=== PATIENT | female | born 1975 | race Caucasian/White ===

== ENCOUNTER 2019-05-14 09:03 | Outpatient (CLI) | payer MEDICARE, MEDICAID, SELFPAY ==
--- NOTE | 2019-05-14 09:08 | MM_ITS ---
WS: [id number] BILATERAL DIGITAL SCREENING MAMMOGRAPHY WITH CAD CLINICAL INFORMATION: SCREENING HISTORY: Screening mammogram. No current complaints. COMPARISON: April 25, 2018 TECHNIQUE: Bilateral CC and MLO views. FINDINGS: Scattered fibroglandular densities bilaterally. A few tiny stable punctate calcifications. No suspici ous focal mass, asymmetry, calcifications, or architectural distortion. No evidence of malignancy. MM/[place] [id number] IMPRESSION: BI-RADS: 2-Benign FOLLOW UP: 1 Year Follow-up Recommend return to annual screening mammography.
== END 2019-05-14 09:04 | disposition home or self-care (01) ==
LOC: RADSHAW 09:03
PROVIDERS: Family Provider Family Medicine; PCP Family Medicine; Visit Provider Family Medicine
DX: Z12.31 Encounter for screening mammogram for malignant neoplasm of breast (principal)
CPT/HCPCS: 77067

== ENCOUNTER 2020-06-20 07:52 | Outpatient (CLI) | payer MEDICARE, MEDICAID, SELFPAY ==
--- NOTE | 2020-06-20 07:59 | MM_ITS ---
WS: [id number] Exam: [place] [id number] Date/Time of Exam: 06/20/2020 7:59 AM Reason For Exam: SCREENING VIEWS: MLO and CC views both breasts. Comparison made with prior exam of 04/24/2017, 04/25/2018, and 05/14/2019.. Findings: There was no sign of mass, architectural distortion or suspicious calcification in either breast. Fa tty MM/[place] [id number] Impression: BI-RADS: 2-Benign FOLLOW-UP: 1 Year Follow-up This mammogram was also analyzed by the Computer Aided Detection System R2 Imag e Plate Setter.
== END 2020-06-20 07:53 | disposition home or self-care (01) ==
LOC: RADSHAW 07:56
PROVIDERS: Family Provider Family Medicine; PCP Family Medicine; Visit Provider Family Medicine
DX: Z12.31 Encounter for screening mammogram for malignant neoplasm of breast (principal)
CPT/HCPCS: 77067

== ENCOUNTER → 2021-08-09 08:26 | Outpatient (BNVA) | payer MEDICARE, MEDICAID, SELFPAY | PROVIDERS: Family Provider Family Medicine; PCP Family Medicine; Visit Provider Thoracic Surgery (Cardiothoracic Vascular Surgery) | DX: I96 Gangrene, not elsewhere classified (principal); L97.822 Non-pressure chronic ulcer of other part of left lower leg with fat layer exposed; L03.116 Cellulitis of left lower limb | CPT/HCPCS: 11042; 97597; 99203; 99213 ==

== ENCOUNTER 2021-08-16 10:28 | Outpatient (CLI) | payer MEDICARE, MEDICAID, SELFPAY | END 2021-08-16 10:29 | disposition home or self-care (01) | LOC: RAD 08-17 10:30 | PROVIDERS: Family Provider Family Medicine; PCP Family Medicine; Visit Provider Family Medicine | DX: I96 Gangrene, not elsewhere classified (principal); L97.822 Non-pressure chronic ulcer of other part of left lower leg with fat layer exposed; L03.90 Cellulitis, unspecified | CPT/HCPCS: 11042; 97597 ==

== ENCOUNTER → 2021-08-21 09:14 | Outpatient (BNVA) | payer MEDICARE, MEDICAID, SELFPAY | PROVIDERS: Family Provider Family Medicine; PCP Family Medicine; Visit Provider Thoracic Surgery (Cardiothoracic Vascular Surgery) | DX: I96 Gangrene, not elsewhere classified (principal); L97.822 Non-pressure chronic ulcer of other part of left lower leg with fat layer exposed | CPT/HCPCS: 11042; 97597 ==

== ENCOUNTER 2021-08-24 07:30 | Outpatient (CLI) | payer MEDICARE, MEDICAID, SELFPAY ==
--- NOTE | 2021-08-24 07:45 | USCV_ITS ---
Chuyita Kilpatrick Age: 46 Gender: F : 1975 Exam Date: 08/24/2021 07:52 Ordering Phys: Alex Rubalcava MD (Andy) ([email or web address]) Technologist: [place] [facility] [place]: lt leg pain and swelling PROCEDURES: Venous duplex imaging was performed in only the left lower extremity. The following venous structures were evaluated: common femoral vein, profunda vein, proximal portion of the greater saphenous vein, superficial femoral vein, and the popliteal vein. In addition, the posterior tibial and peroneal trunk were evaluated. FINDINGS: Normal 2-D Doppler and augmentation and compressibility throughout the lower extremity venous structures. Additional imaging through the proximal calf veins also reveals no thrombus. Limited evaluation of the greater saphenous vein is patent with no thrombus. CONCLUSIONS No DVT left lower extremity. Dr. Oksana Bryson DO (Electronically Signed) Final Date: 24 Aug 2021 09:11 S
== END 2021-08-24 07:31 | disposition home or self-care (01) ==
PROVIDERS: PCP Family Medicine; Visit Provider Thoracic Surgery (Cardiothoracic Vascular Surgery)
DX: M79.605 Pain in left leg (principal); L97.922 Non-pressure chronic ulcer of unspecified part of left lower leg with fat layer exposed
CPT/HCPCS: 93971

== ENCOUNTER → 2021-08-29 14:46 | Outpatient (BNVA) | payer MEDICARE, MEDICAID, SELFPAY | PROVIDERS: PCP Family Medicine; Visit Provider Nurse Practitioner Family | DX: I96 Gangrene, not elsewhere classified (principal); L97.822 Non-pressure chronic ulcer of other part of left lower leg with fat layer exposed | CPT/HCPCS: 11042 ==

== ENCOUNTER → 2021-09-04 09:15 | Outpatient (BNVA) | payer MEDICARE, MEDICAID, SELFPAY | PROVIDERS: PCP Family Medicine; Visit Provider Thoracic Surgery (Cardiothoracic Vascular Surgery) | DX: L97.822 Non-pressure chronic ulcer of other part of left lower leg with fat layer exposed (principal); I96 Gangrene, not elsewhere classified | CPT/HCPCS: 11042; 97597 ==

== ENCOUNTER → 2021-09-11 08:47 | Outpatient (BNVA) | payer MEDICARE, MEDICAID, SELFPAY | PROVIDERS: PCP Family Medicine; Visit Provider Thoracic Surgery (Cardiothoracic Vascular Surgery) | DX: I96 Gangrene, not elsewhere classified (principal); L97.822 Non-pressure chronic ulcer of other part of left lower leg with fat layer exposed | CPT/HCPCS: 11042; 97597; A6212 ==

== ENCOUNTER → 2021-09-18 08:59 | Outpatient (BNVA) | payer MEDICARE, MEDICAID, SELFPAY | PROVIDERS: PCP Family Medicine; Visit Provider Nurse Practitioner Family | DX: I96 Gangrene, not elsewhere classified (principal); L97.822 Non-pressure chronic ulcer of other part of left lower leg with fat layer exposed; L03.116 Cellulitis of left lower limb | CPT/HCPCS: 11042; 87070; 87077; 87176; 87186; 87205 ==

== ENCOUNTER 2021-09-22 08:18 | Outpatient (CLI) | payer MEDICARE, MEDICAID, SELFPAY ==
--- NOTE | 2021-09-22 08:26 | MM_ITS ---
WS: [id number] VIEWS: MLO and CC views both breasts. 3D digital tomosynthesis is also included in this exam. Comparison made with prior exam of 04/24/2017, 04/25/2018, 05/14/2019, 06/20/2020.. Findings: There was no sign of mass, architectural distortion or suspicious calcification in either breast. Fa tty MM/[place] [id number] Impression: BI-RADS: 2-Benign FOLLOW-UP: 1 Year Follow-up This mammogram was also analyzed by the Computer Aided Detection System R2 Imag e Flame Annealing Machine Setter.
== END 2021-09-22 08:19 | disposition home or self-care (01) ==
LOC: RAD 08:19
PROVIDERS: PCP Family Medicine; Visit Provider Family Medicine
DX: Z12.31 Encounter for screening mammogram for malignant neoplasm of breast (principal)
CPT/HCPCS: 77063; 77067

== ENCOUNTER → 2021-09-25 09:28 | Outpatient (BNVA) | payer MEDICARE, MEDICAID, SELFPAY | PROVIDERS: PCP Family Medicine; Visit Provider Thoracic Surgery (Cardiothoracic Vascular Surgery) | DX: I96 Gangrene, not elsewhere classified (principal); L97.822 Non-pressure chronic ulcer of other part of left lower leg with fat layer exposed | CPT/HCPCS: 11042; 29581; 97597; A6252 ==

== ENCOUNTER → 2021-09-28 08:03 | Outpatient (BNVA) | payer MEDICARE, MEDICAID, SELFPAY | PROVIDERS: PCP Family Medicine; Visit Provider Thoracic Surgery (Cardiothoracic Vascular Surgery) | DX: L98.8 Other specified disorders of the skin and subcutaneous tissue (principal); L97.822 Non-pressure chronic ulcer of other part of left lower leg with fat layer exposed | CPT/HCPCS: 29581 ==

== ENCOUNTER → 2021-10-04 08:17 | Outpatient (BNVA) | payer MEDICARE, MEDICAID, SELFPAY | PROVIDERS: PCP Family Medicine; Visit Provider Thoracic Surgery (Cardiothoracic Vascular Surgery) | DX: I96 Gangrene, not elsewhere classified (principal); L97.822 Non-pressure chronic ulcer of other part of left lower leg with fat layer exposed; L03.116 Cellulitis of left lower limb | CPT/HCPCS: 11042; 97597 ==

== ENCOUNTER → 2021-10-09 11:13 | Outpatient (BNVA) | payer MEDICARE, MEDICAID, SELFPAY | PROVIDERS: PCP Family Medicine; Visit Provider Thoracic Surgery (Cardiothoracic Vascular Surgery) | DX: I96 Gangrene, not elsewhere classified (principal); L97.822 Non-pressure chronic ulcer of other part of left lower leg with fat layer exposed; L03.116 Cellulitis of left lower limb | CPT/HCPCS: 11042; 97597; A6252 ==

== ENCOUNTER → 2021-10-16 10:22 | Outpatient (BNVA) | payer MEDICARE, MEDICAID, SELFPAY | PROVIDERS: PCP Family Medicine; Visit Provider Thoracic Surgery (Cardiothoracic Vascular Surgery) | DX: I96 Gangrene, not elsewhere classified (principal); L97.822 Non-pressure chronic ulcer of other part of left lower leg with fat layer exposed; L03.116 Cellulitis of left lower limb | CPT/HCPCS: 11042 ==

== ENCOUNTER → 2021-10-23 13:29 | Outpatient (BNVA) | payer MEDICARE, MEDICAID, SELFPAY | PROVIDERS: PCP Family Medicine; Visit Provider Thoracic Surgery (Cardiothoracic Vascular Surgery) | DX: I96 Gangrene, not elsewhere classified (principal); L97.822 Non-pressure chronic ulcer of other part of left lower leg with fat layer exposed | CPT/HCPCS: 11042; A6251 ==

== ENCOUNTER → 2021-10-30 10:40 | Outpatient (BNVA) | payer MEDICARE, MEDICAID, SELFPAY | PROVIDERS: PCP Family Medicine; Visit Provider Nurse Practitioner Family | DX: I96 Gangrene, not elsewhere classified (principal); L97.822 Non-pressure chronic ulcer of other part of left lower leg with fat layer exposed | CPT/HCPCS: 11042; A6021 ==

== ENCOUNTER → 2021-11-06 10:41 | Outpatient (BNVA) | payer MEDICARE, MEDICAID, SELFPAY | PROVIDERS: PCP Family Medicine; Visit Provider Thoracic Surgery (Cardiothoracic Vascular Surgery) | DX: I96 Gangrene, not elsewhere classified (principal); L97.822 Non-pressure chronic ulcer of other part of left lower leg with fat layer exposed | CPT/HCPCS: 11042; 97597; A6021; A6252 ==

== ENCOUNTER → 2021-11-13 10:14 | Outpatient (BNVA) | payer MEDICARE, MEDICAID, SELFPAY | PROVIDERS: PCP Family Medicine; Visit Provider Thoracic Surgery (Cardiothoracic Vascular Surgery) | DX: I96 Gangrene, not elsewhere classified (principal); L97.822 Non-pressure chronic ulcer of other part of left lower leg with fat layer exposed | CPT/HCPCS: 11042; A6251 ==

== ENCOUNTER → 2021-11-20 09:46 | Outpatient (BNVA) | payer MEDICARE, MEDICAID, SELFPAY | PROVIDERS: PCP Family Medicine; Visit Provider Thoracic Surgery (Cardiothoracic Vascular Surgery) | DX: I96 Gangrene, not elsewhere classified (principal); L97.822 Non-pressure chronic ulcer of other part of left lower leg with fat layer exposed | CPT/HCPCS: 97597; A6021 ==

== ENCOUNTER → 2021-11-27 10:13 | Outpatient (BNVA) | payer MEDICARE, MEDICAID, SELFPAY | PROVIDERS: PCP Family Medicine; Visit Provider Thoracic Surgery (Cardiothoracic Vascular Surgery) | DX: I96 Gangrene, not elsewhere classified (principal); L97.822 Non-pressure chronic ulcer of other part of left lower leg with fat layer exposed; L03.116 Cellulitis of left lower limb | CPT/HCPCS: 11042; 97597; A6021 ==

== ENCOUNTER → 2021-12-01 09:27 | Outpatient (BNVA) | payer MEDICARE, MEDICAID, SELFPAY | PROVIDERS: PCP Family Medicine; Visit Provider Surgery | DX: L98.8 Other specified disorders of the skin and subcutaneous tissue (principal); L97.822 Non-pressure chronic ulcer of other part of left lower leg with fat layer exposed | CPT/HCPCS: 29581; A6021 ==

== ENCOUNTER → 2021-12-06 09:25 | Outpatient (BNVA) | payer MEDICARE, MEDICAID, SELFPAY | PROVIDERS: PCP Family Medicine; Visit Provider Thoracic Surgery (Cardiothoracic Vascular Surgery) | DX: L03.90 Cellulitis, unspecified (principal); L97.822 Non-pressure chronic ulcer of other part of left lower leg with fat layer exposed; I96 Gangrene, not elsewhere classified | CPT/HCPCS: 15271; 97597; A6206; A6251; Q4205 ==

== ENCOUNTER → 2021-12-11 08:40 | Outpatient (BNVA) | payer MEDICARE, MEDICAID, SELFPAY | PROVIDERS: PCP Family Medicine; Visit Provider Nurse Practitioner Family | DX: I96 Gangrene, not elsewhere classified (principal); L03.116 Cellulitis of left lower limb; L97.822 Non-pressure chronic ulcer of other part of left lower leg with fat layer exposed | CPT/HCPCS: 11042; 15271; A6206; A6251; Q4205 ==

== ENCOUNTER → 2021-12-18 08:42 | Outpatient (BNVA) | payer MEDICARE, MEDICAID, SELFPAY | PROVIDERS: PCP Family Medicine; Visit Provider Thoracic Surgery (Cardiothoracic Vascular Surgery) | DX: I96 Gangrene, not elsewhere classified (principal); L97.822 Non-pressure chronic ulcer of other part of left lower leg with fat layer exposed | CPT/HCPCS: 15271; 97597; A6207; A6252; Q4205 ==

== ENCOUNTER → 2021-12-25 09:01 | Outpatient (BNVA) | payer MEDICARE, MEDICAID, SELFPAY | PROVIDERS: PCP Family Medicine; Visit Provider Thoracic Surgery (Cardiothoracic Vascular Surgery) | DX: I96 Gangrene, not elsewhere classified (principal); L97.822 Non-pressure chronic ulcer of other part of left lower leg with fat layer exposed | CPT/HCPCS: 11042 ==

== ENCOUNTER → 2022-01-01 09:03 | Outpatient (BNVA) | payer MEDICARE, MEDICAID, SELFPAY | PROVIDERS: PCP Family Medicine; Visit Provider Thoracic Surgery (Cardiothoracic Vascular Surgery) | DX: I96 Gangrene, not elsewhere classified (principal); L97.822 Non-pressure chronic ulcer of other part of left lower leg with fat layer exposed; L03.116 Cellulitis of left lower limb | CPT/HCPCS: 97597; A6252 ==

== ENCOUNTER → 2022-01-08 09:24 | Outpatient (BNVA) | payer MEDICARE, MEDICAID, SELFPAY | PROVIDERS: PCP Family Medicine; Visit Provider Thoracic Surgery (Cardiothoracic Vascular Surgery) | DX: I96 Gangrene, not elsewhere classified (principal); L97.822 Non-pressure chronic ulcer of other part of left lower leg with fat layer exposed; L03.116 Cellulitis of left lower limb | CPT/HCPCS: 97597; A6252 ==

== ENCOUNTER → 2022-01-15 09:30 | Outpatient (BNVA) | payer MEDICARE, MEDICAID, SELFPAY | PROVIDERS: PCP Family Medicine; Visit Provider Nurse Practitioner Family | DX: I96 Gangrene, not elsewhere classified (principal); L97.822 Non-pressure chronic ulcer of other part of left lower leg with fat layer exposed; L03.116 Cellulitis of left lower limb | CPT/HCPCS: 11042; A6252 ==

== ENCOUNTER → 2022-01-22 10:13 | Outpatient (BNVA) | payer MEDICARE, MEDICAID, SELFPAY | PROVIDERS: PCP Family Medicine; Visit Provider Thoracic Surgery (Cardiothoracic Vascular Surgery) | DX: I96 Gangrene, not elsewhere classified (principal); L97.822 Non-pressure chronic ulcer of other part of left lower leg with fat layer exposed; L03.116 Cellulitis of left lower limb | CPT/HCPCS: 97597 ==

== ENCOUNTER → 2022-01-29 09:39 | Outpatient (BNVA) | payer MEDICARE, MEDICAID, SELFPAY | PROVIDERS: PCP Family Medicine; Visit Provider Thoracic Surgery (Cardiothoracic Vascular Surgery) | DX: I96 Gangrene, not elsewhere classified (principal); L03.116 Cellulitis of left lower limb; L97.822 Non-pressure chronic ulcer of other part of left lower leg with fat layer exposed | CPT/HCPCS: 11042; A6021 ==

== ENCOUNTER → 2022-02-05 09:58 | Outpatient (BNVA) | payer MEDICARE, MEDICAID, SELFPAY | PROVIDERS: PCP Family Medicine; Visit Provider Thoracic Surgery (Cardiothoracic Vascular Surgery) | DX: I96 Gangrene, not elsewhere classified (principal); L03.116 Cellulitis of left lower limb; L97.822 Non-pressure chronic ulcer of other part of left lower leg with fat layer exposed | CPT/HCPCS: 97597; A6021 ==

== ENCOUNTER → 2022-02-12 10:14 | Outpatient (BNVA) | payer MEDICARE, MEDICAID, SELFPAY | PROVIDERS: PCP Family Medicine; Visit Provider Thoracic Surgery (Cardiothoracic Vascular Surgery) | DX: I96 Gangrene, not elsewhere classified (principal); L97.822 Non-pressure chronic ulcer of other part of left lower leg with fat layer exposed; L03.116 Cellulitis of left lower limb | CPT/HCPCS: 97597 ==

== ENCOUNTER → 2022-02-19 10:28 | Outpatient (BNVA) | payer MEDICARE, MEDICAID, SELFPAY | PROVIDERS: PCP Family Medicine; Visit Provider Nurse Practitioner Family | DX: I96 Gangrene, not elsewhere classified (principal); L03.116 Cellulitis of left lower limb; L97.822 Non-pressure chronic ulcer of other part of left lower leg with fat layer exposed | CPT/HCPCS: 11042 ==

== ENCOUNTER → 2022-02-26 10:49 | Outpatient (BNVA) | payer MEDICARE, MEDICAID, SELFPAY | PROVIDERS: PCP Family Medicine; Visit Provider Nurse Practitioner Family | DX: I96 Gangrene, not elsewhere classified (principal); L97.822 Non-pressure chronic ulcer of other part of left lower leg with fat layer exposed; L03.116 Cellulitis of left lower limb | CPT/HCPCS: 11042; A6212 ==

== ENCOUNTER → 2022-03-07 09:01 | Outpatient (BNVA) | payer MEDICARE, MEDICAID, SELFPAY | PROVIDERS: PCP Family Medicine; Visit Provider Thoracic Surgery (Cardiothoracic Vascular Surgery) | DX: I96 Gangrene, not elsewhere classified (principal); L97.822 Non-pressure chronic ulcer of other part of left lower leg with fat layer exposed; L03.116 Cellulitis of left lower limb | CPT/HCPCS: 11042; 97597; A6021; A6212 ==

== ENCOUNTER → 2022-03-12 14:47 | Outpatient (BNVA) | payer MEDICARE, MEDICAID, SELFPAY | PROVIDERS: PCP Family Medicine; Visit Provider Nurse Practitioner Family | DX: I96 Gangrene, not elsewhere classified (principal); L97.822 Non-pressure chronic ulcer of other part of left lower leg with fat layer exposed; L03.116 Cellulitis of left lower limb | CPT/HCPCS: 11042 ==

== ENCOUNTER → 2022-03-19 09:59 | Outpatient (BNVA) | payer MEDICARE, MEDICAID, SELFPAY | PROVIDERS: PCP Family Medicine; Visit Provider Thoracic Surgery (Cardiothoracic Vascular Surgery) | DX: L97.922 Non-pressure chronic ulcer of unspecified part of left lower leg with fat layer exposed (principal); L03.116 Cellulitis of left lower limb | CPT/HCPCS: 11042; A6212 ×2 ==

== ENCOUNTER → 2022-03-27 09:18 | Outpatient (BNVA) | payer MEDICARE, MEDICAID, SELFPAY | PROVIDERS: PCP Family Medicine; Visit Provider Thoracic Surgery (Cardiothoracic Vascular Surgery) | DX: I96 Gangrene, not elsewhere classified (principal); L97.822 Non-pressure chronic ulcer of other part of left lower leg with fat layer exposed; L03.116 Cellulitis of left lower limb | CPT/HCPCS: 11042 ==

== ENCOUNTER → 2022-04-03 10:10 | Outpatient (BNVA) | payer MEDICARE, MEDICAID, SELFPAY | PROVIDERS: PCP Family Medicine; Visit Provider Thoracic Surgery (Cardiothoracic Vascular Surgery) | DX: I96 Gangrene, not elsewhere classified (principal); L97.822 Non-pressure chronic ulcer of other part of left lower leg with fat layer exposed; L03.116 Cellulitis of left lower limb | CPT/HCPCS: 11042 ==

== ENCOUNTER → 2022-04-09 10:17 | Outpatient (BNVA) | payer MEDICARE, MEDICAID, SELFPAY | PROVIDERS: PCP Family Medicine; Visit Provider Thoracic Surgery (Cardiothoracic Vascular Surgery) | DX: I96 Gangrene, not elsewhere classified (principal); L97.822 Non-pressure chronic ulcer of other part of left lower leg with fat layer exposed; L03.116 Cellulitis of left lower limb | CPT/HCPCS: 11042; A6212 ==

== ENCOUNTER → 2022-04-16 10:51 | Outpatient (BNVA) | payer MEDICARE, MEDICAID, SELFPAY | PROVIDERS: PCP Family Medicine; Visit Provider Thoracic Surgery (Cardiothoracic Vascular Surgery) | DX: I96 Gangrene, not elsewhere classified (principal); L97.822 Non-pressure chronic ulcer of other part of left lower leg with fat layer exposed; L03.116 Cellulitis of left lower limb | CPT/HCPCS: 11042; A6021 ==

== ENCOUNTER → 2022-04-23 12:02 | Outpatient (BNVA) | payer MEDICARE, MEDICAID, SELFPAY | PROVIDERS: PCP Family Medicine; Visit Provider Thoracic Surgery (Cardiothoracic Vascular Surgery) | DX: L03.116 Cellulitis of left lower limb (principal); L97.822 Non-pressure chronic ulcer of other part of left lower leg with fat layer exposed | CPT/HCPCS: 11042; A6021; A6212 ==

== ENCOUNTER → 2022-05-07 09:30 | Outpatient (BNVA) | payer MEDICARE, MEDICAID, SELFPAY | PROVIDERS: PCP Family Medicine; Visit Provider Thoracic Surgery (Cardiothoracic Vascular Surgery) | DX: I96 Gangrene, not elsewhere classified (principal); L97.822 Non-pressure chronic ulcer of other part of left lower leg with fat layer exposed; L03.116 Cellulitis of left lower limb | CPT/HCPCS: 97597; A6021; A6212 ==

== ENCOUNTER → 2022-05-14 09:13 | Outpatient (BNVA) | payer MEDICARE, MEDICAID, SELFPAY | PROVIDERS: PCP Family Medicine; Visit Provider Thoracic Surgery (Cardiothoracic Vascular Surgery) | DX: I96 Gangrene, not elsewhere classified (principal); L97.822 Non-pressure chronic ulcer of other part of left lower leg with fat layer exposed; L03.115 Cellulitis of right lower limb; Z09 Encounter for follow-up examination after completed treatment for conditions other than malignant neoplasm | CPT/HCPCS: 97597; A6021 ==

== ENCOUNTER → 2022-05-21 09:40 | Outpatient (BNVA) | payer MEDICARE, MEDICAID, SELFPAY | PROVIDERS: PCP Family Medicine; Visit Provider Thoracic Surgery (Cardiothoracic Vascular Surgery) | DX: I96 Gangrene, not elsewhere classified (principal); L03.116 Cellulitis of left lower limb; L97.822 Non-pressure chronic ulcer of other part of left lower leg with fat layer exposed | CPT/HCPCS: 97597; A6021; A6212 ==

== ENCOUNTER → 2022-05-28 09:05 | Outpatient (BNVA) | payer MEDICARE, MEDICAID, SELFPAY | PROVIDERS: PCP Family Medicine; Visit Provider Thoracic Surgery (Cardiothoracic Vascular Surgery) | DX: I96 Gangrene, not elsewhere classified (principal); L97.822 Non-pressure chronic ulcer of other part of left lower leg with fat layer exposed; L03.116 Cellulitis of left lower limb | CPT/HCPCS: 97597; A6021; A6212 ==

== ENCOUNTER → 2022-06-04 09:39 | Outpatient (BNVA) | payer MEDICARE, MEDICAID, SELFPAY | PROVIDERS: PCP Family Medicine; Visit Provider Thoracic Surgery (Cardiothoracic Vascular Surgery) | DX: I96 Gangrene, not elsewhere classified (principal); L97.822 Non-pressure chronic ulcer of other part of left lower leg with fat layer exposed; L03.115 Cellulitis of right lower limb | CPT/HCPCS: 99212; A6021; A6212 ==

== ENCOUNTER → 2022-06-11 08:55 | Outpatient (BNVA) | payer MEDICARE, MEDICAID, SELFPAY | PROVIDERS: PCP Family Medicine; Visit Provider Nurse Practitioner Family | DX: I96 Gangrene, not elsewhere classified (principal); L97.822 Non-pressure chronic ulcer of other part of left lower leg with fat layer exposed; Z09 Encounter for follow-up examination after completed treatment for conditions other than malignant neoplasm | CPT/HCPCS: 97597; A6021; A6212 ==

== ENCOUNTER → 2022-06-18 09:11 | Outpatient (BNVA) | payer MEDICARE, MEDICAID, SELFPAY | PROVIDERS: PCP Family Medicine; Visit Provider Nurse Practitioner Family | DX: I96 Gangrene, not elsewhere classified (principal); L97.822 Non-pressure chronic ulcer of other part of left lower leg with fat layer exposed; L03.116 Cellulitis of left lower limb | CPT/HCPCS: 97597; A6021; A6212 ==

== ENCOUNTER 2022-06-28 13:21 | Outpatient (CLI) | payer MEDICARE, MEDICAID, SELFPAY ==
--- NOTE | 2022-06-28 13:30 | USCV_ITS ---
Chuyita Kilpatrick Age: 47 Gender: F : 1975 Exam Date: 06/28/2022 15:02 Ordering Phys: Zena Lee NP Technologist: [place] [facility] [place]: [place] leg pain and edema PROCEDURES: Comparison:. 08/25/19 Venous duplex imaging was performed in only the left lower extremity. The following venous structures were evaluated: common femoral vein, profunda vein, proximal portion of the greater saphenous vein, superficial femoral vein, and the popliteal vein. In addition, the posterior tibial and peroneal trunk were evaluated. FINDINGS: Normal 2-D Doppler and augmentation and compressibility throughout the lower extremity venous structures. Additional imaging through the proximal calf veins also reveals no thrombus. Limited evaluation of the greater saphenous vein is patent with no thrombus. CONCLUSIONS No DVT left lower extremity. Dr. Oksana Bryson DO (Electronically Signed) Final Date: 28 June 2022 16:20 S
== END 2022-06-28 13:22 | disposition home or self-care (01) ==
PROVIDERS: PCP Family Medicine; Visit Provider Nurse Practitioner Family
DX: I96 Gangrene, not elsewhere classified (principal); L97.822 Non-pressure chronic ulcer of other part of left lower leg with fat layer exposed; L03.116 Cellulitis of left lower limb; M79.605 Pain in left leg; R60.0 Localized edema
CPT/HCPCS: 93971; 97597; A6212; A6251; A6252

== ENCOUNTER → 2022-07-05 08:44 | Outpatient (BNVA) | payer MEDICARE, MEDICAID, SELFPAY | PROVIDERS: PCP Family Medicine; Visit Provider Nurse Practitioner Family | DX: I96 Gangrene, not elsewhere classified (principal); L97.822 Non-pressure chronic ulcer of other part of left lower leg with fat layer exposed; L03.115 Cellulitis of right lower limb | CPT/HCPCS: 97597; A6212 ==

== ENCOUNTER → 2022-07-12 08:43 | Outpatient (BNVA) | payer MEDICARE, MEDICAID, SELFPAY | PROVIDERS: PCP Family Medicine; Visit Provider Nurse Practitioner Family | DX: I96 Gangrene, not elsewhere classified (principal); L97.822 Non-pressure chronic ulcer of other part of left lower leg with fat layer exposed; L03.116 Cellulitis of left lower limb | CPT/HCPCS: 97597 ==

== ENCOUNTER → 2022-07-19 08:43 | Outpatient (BNVA) | payer MEDICARE, MEDICAID, SELFPAY | PROVIDERS: PCP Family Medicine; Visit Provider Nurse Practitioner Family | DX: I96 Gangrene, not elsewhere classified (principal); L97.822 Non-pressure chronic ulcer of other part of left lower leg with fat layer exposed; L03.116 Cellulitis of left lower limb | CPT/HCPCS: 97597 ==

== ENCOUNTER → 2022-07-26 08:41 | Outpatient (BNVA) | payer MEDICARE, MEDICAID, SELFPAY | PROVIDERS: PCP Family Medicine; Visit Provider Nurse Practitioner Family | DX: I96 Gangrene, not elsewhere classified (principal); I87.2 Venous insufficiency (chronic) (peripheral); L97.822 Non-pressure chronic ulcer of other part of left lower leg with fat layer exposed | CPT/HCPCS: 97597 ==

== ENCOUNTER → 2022-08-02 08:45 | Outpatient (BNVA) | payer MEDICARE, MEDICAID, SELFPAY | PROVIDERS: PCP Family Medicine; Visit Provider Nurse Practitioner Family | DX: I96 Gangrene, not elsewhere classified (principal); L97.822 Non-pressure chronic ulcer of other part of left lower leg with fat layer exposed | CPT/HCPCS: 97597 ==

== ENCOUNTER → 2022-08-09 08:55 | Outpatient (BNVA) | payer MEDICARE, MEDICAID, SELFPAY | PROVIDERS: PCP Family Medicine; Visit Provider Nurse Practitioner Family | DX: I96 Gangrene, not elsewhere classified (principal); L97.821 Non-pressure chronic ulcer of other part of left lower leg limited to breakdown of skin | CPT/HCPCS: 97597 ==

== ENCOUNTER → 2022-08-16 09:03 | Outpatient (BNVA) | payer MEDICARE, MEDICAID, SELFPAY | PROVIDERS: PCP Family Medicine; Visit Provider Nurse Practitioner Family | DX: I96 Gangrene, not elsewhere classified (principal); L97.822 Non-pressure chronic ulcer of other part of left lower leg with fat layer exposed | CPT/HCPCS: 97597; 97598 ==

== ENCOUNTER 2022-08-21 16:34 | Outpatient (CLI) | payer MEDICARE, MEDICAID, SELFPAY ==
--- NOTE | 2022-08-21 16:30 | USR_ITS ---
PROCEDURE INFORMATION: Exam: US Duplex Left Lower Extremity Veins, Limited Exam date and time: 08/21/2022 4:50 PM Age: 47 years old Clinical indication: Other: Non healing ulcers lateral leg; Additional info: M79.89 - other specified soft tissue disorders TECHNIQUE: Imaging protocol: Real-time duplex ultrasound of the left extremity with 2-D cedeno scale, color Doppler flow and spectral waveform analysis including responses to compression and other maneuvers (when performed) with image documentation. Limited exam focused on the left lower extremity veins. COMPARISON: No relevant prior studies available. FINDINGS: Left deep veins: Unremarkable. The common femoral, femoral, proximal profunda femoral and popliteal veins are patent without thrombus. Normal Doppler waveforms. Normal compressibility and/or augmentation response. Left superficial veins: Unremarkable. Saphenofemoral junction is patent without thrombus. Soft tissues: Unremarkable. US/CV venous duplex [facility] [id number] IMPRESSION: No evidence of deep vein thrombosis.
[2022-08-21 17:24] LABS: Basophils # 0.1 10^3/uL (0.0-0.1); Basophils % 0.3 %; Eosinophils % 0.2 %; Hematocrit 42.6 % (37.0-47.0); Hemoglobin 13.7 g/dL (11.5-15.3); Lymphocytes # 1.6 10^3/uL (0.8-4.8); Lymphocytes % 8.8 %; Mean Corpuscular HGB Conc 32.2 g/dL (30.0-36.0); Mean Corpuscular Hemoglobin 29.9 pg (28.0-34.0); Mean Platelet Volume 9.3 fL (7.4-10.4); Monocytes # 0.4 10^3/uL (0.2-0.9); Monocytes % 2.1 %; Neutrophils # 16.25 10^3/uL (1.8-7.7); Neutrophils % 87.7 %; Nucleated Red Blood Cells % 0 %; Platelet Count 289 10^3/cmm (130-400); Red Blood Count 4.58 10^6/uL (4.1-5.3); Red Cell Distribution Width 13.4 % (12.1-15.1); White Blood Count 18.5 10^3/uL (4.0-10.0)
[2022-08-21 17:47] LABS: Alanine Aminotransferase 17 U/L (0-33); Albumin Level 3.7 g/dL (3.5-5.2); Alkaline Phosphatase 89 U/L (35-105); Anion Gap 17.4 (5-19); Aspartate Amino Transferase 16 U/L (0-32); Blood Urea Nitrogen 13 mg/dL (6-20); Calcium 9.5 mg/dL (8.5-10.5); Carbon Dioxide 24 mmol/L (22-29); Chloride 101 mmol/L (98-107); Globulin 3.6 g/dL (1.3-4.6); Glomerular Filtration Rate 108.1 mL/min (90-130); Glucose 114 mg/dL (65-115); Osmolality Calculated 289 mOsm/kg (285-295); Potassium 3.4 mmol/L (3.5-5.1); Sodium 139 mmol/L (136-145); Total Bilirubin 0.2 mg/dL (0.15-1.2); Total Protein 7.3 g/dL (6.6-8.7)
== END 2022-08-21 16:35 | disposition home or self-care (01) ==
PROVIDERS: PCP Family Medicine; Visit Provider Nurse Practitioner Family
DX: L03.116 Cellulitis of left lower limb (principal); M79.89 Other specified soft tissue disorders; S81.802A Unspecified open wound, left lower leg, initial encounter; X58.XXXA Exposure to other specified factors, initial encounter
CPT/HCPCS: 36415; 80053; 85025; 93971; 97597; 97598

== ENCOUNTER 2022-08-21 18:21 | Inpatient (IN) | payer MEDICARE, MEDICAID, SELFPAY ==
[2022-08-21 18:32] VITALS: BP 138/75; PULSE 102; RESP 18; TEMP 36.7; O2SAT 98; BMI 44.1
--- NOTE | 2022-08-21 18:56 | W.ED.RECABL ---
HPI - Recheck/Abnormal Lab/Rx General: Chief Complaint: Recheck/Abnormal Lab/Rx Stated Complaint: abnormal labs Time Seen by Provider: 08/21/22 18:48 History of Present Illness: Patient sent over here by wound care for cellulitis and elevated white count. 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 Patient sees wound care for her multiple wounds from picking on her left lower extremity. Wound care noted her white count to be 18.5 earlier today and her erythema of her left lower extremity extended well up into her mid thigh from her ankle region. MD complaint: wound re-check, abnormal lab and needs IV antibiotics Review of Systems General: Reports: 10 or more systems reviewed and unremarkable except in HPI and below PFSH ED PFSH: Surgical History No history of previous surgery Family History Mother Hypertension Grandmother Clotting disorder paternal Denies family history of Colon cancer Ovarian cancer Diabetes Heart disease Hyperlipidemia Breast cancer Anesthesia complication Bleeding disorder Uterine cancer Thyroid condition Stroke Social History Smoking and tobacco status: never smoked Alcohol intake: never Substance/Drug Use: never Physical Exam Const: COMMON NORMALS: no acute distress, average body habitus, healthy appearing, alert and well nourished HENMT: COMMON NORMALS: normocephalic, atraumatic, hearing grossly normal bilaterally, external ears normal, Normal external nose present and moist oral mucous membranes HEAD & SCALP: normocephalic and atraumatic NOSE: Normal external nose present EXTERNAL EAR: Yes external ears normal Neck/C-Spine: COMMON NORMALS: full ROM, no lymphadenopathy, supple, no meningeal signs, no JVD and Thyroid normal THYROID: Thyroid normal Lymph: LYMPHATIC: no lymphadenopathy noted Chest: COMMONS NORMALS: normal inspection of the chest and normal palpation of entire chest wall Resp: COMMON NORMALS: normal respiratory effort, No retractions, No use of accessory muscles and clear to auscultation bilaterally AUSCULTATION: clear to auscultation bilaterally Cardio: COMMON NORMALS: no JVD, regular rate, regular rhythm, S1 normal heart sound present and S2 normal heart sound present RATE: regular rate RHYTHM: regular rhythm HEART SOUNDS: S1 normal heart sound present and S2 normal heart sound present GI: COMMON NORMALS: Normal to inspection, nondistended, normoactive bowel sounds present, Soft to palpation, non-tender, No hepatosplenomegaly present and no masses PALPATION: Yes Soft to palpation and Yes No hepatosplenomegaly present Extremity: NARRATIVE EXTREMITY EXAM: Left lower extremity bandages in place of the distal lower leg. There is erythema and warmth all the way up at least to mid thigh consistent with cellulitis Neuro: SENSORIUM/ORIENTATION: Yes alert MENINGEAL SIGNS: Yes no meningeal signs Course Vital Signs: Vital signs: Vital Signs Temperature 98.1 F 08/21/22 18:32 Pulse Rate 110 H 08/21/22 19:36 Respiratory Rate 16 08/21/22 19:36 Blood Pressure 126/101 08/21/22 19:36 Pulse Oximetry 96 08/21/22 19:36 Oxygen Delivery Me thod Room Air 08/21/22 18:32 MDM - Recheck/Abnormal Lab/Rx Medical Decision Making Patient was sent over by wound care for elevated white blood cell count and cellulitis. Patient is mentally challenged and a payment manager. Labs were reobtained which showed a white count of 20.1. Patient was given Levaquin 750 mg IV. This was discussed with her mother that she should be placed inpatient on IV antibiotics until improvement of her cellulitis and white blood cell count. Mother and her agreed. Dr. Thompson was consulted who agreed for inpatient admission with IV antibiotics. Medical Records I reviewed the patient's medical records. Lab Data I reviewed the patient's lab results. 08/21/22 19:10 08/21/22 19:10 Laboratory Results WBC 20.1 10^3/uL (4.0-10.0) H 08/21/22 19:10 RBC 4.59 10^6/uL (4.1-5.3) 08/21/22 19:10 Hgb 13.4 g/dL (11.5-15.3) 08/21/22 19:10 Hct 41.7 % (37.0-47.0) 08/21/22 19:10 MCV 90.8 fl (81-99) 08/21/22 19:10 MCH 29.2 pg (28.0-34.0) 08/21/22 19:10 MCHC 32.1 g/dL (30.0-36.0) 08/21/22 19:10 RDW 13.2 % (12.1-15.1) 08/21/22 19:10 Plt Count 322 10^3/cmm (130-400) 08/21/22 19:10 MPV 9.4 fL (7.4-10.4) 08/21/22 19:10 Neut % (Auto) 89.2 % 08/21/22 19:10 Lymph % (Auto) 7.5 % 08/21/22 19:10 Cabell % (Auto) 2.3 % 08/21/22 19:10 Eos % (Auto) 0.1 % 08/21/22 19:10 Baso % (Auto) 0.2 % 08/21/22 19:10 Neut # (Auto) 17.89 10^3/uL (1.8-7.7) H 08/21/22 19:10 Lymph # (Auto) 1.5 10^3/uL (0.8-4.8) 08/21/22 19:10 Cabell # (Auto) 0.5 10^3/uL (0.2-0.9) 08/21/22 19:10 Eos # (Auto) 0.0 10^3/uL (0.0-0.8) 08/21/22 19:10 Baso # (Auto) 0.0 10^3/uL (0.0-0.1) 08/21/22 19:10 Nucleated RBC % (auto) 0 % 08/21/22 19:10 Nucleated RBCs # 0.0 /100WBC 08/21/22 19:10 Sodium 137 mmol/L (136-145) 08/21/22 19:10 Potassium 3.5 mmol/L (3.5-5.1) 08/21/22 19:10 Chloride 98 mmol/L (98-107) 08/21/22 19:10 Carbon Dioxide 25 mmol/L (22-29) 08/21/22 19:10 Anion Gap 17.5 (5-19) 08/21/22 19:10 BUN 14 mg/dL (6-20) 08/21/22 19:10 Creatinine 0.9 mg/dL (0.5-0.9) 08/21/22 19:10 GFR Calculation 67.7 mL/min (90-130) L 08/21/22 19:10 Glucose 120 mg/dL (65-115) H 08/21/22 19:10 Calculated Osmolality 286 mOsm/kg (285-295) 08/21/22 19:10 Calcium 9.5 mg/dL (8.5-10.5) 08/21/22 19:10 Total Bilirubin 0.3 mg/dL (0.15-1.2) 08/21/22 19:10 AST 15 U/L (0-32) 08/21/22 19:10 ALT 16 U/L (0-33) 08/21/22 19:10 Alkaline Phosphatase 85 U/L (35-105) 08/21/22 19:10 Total Protein 7.2 g/dL (6.6-8.7) 08/21/22 19:10 Albumin 3.6 g/dL (3.5-5.2) 08/21/22 19:10 Globulin 3.6 g/dL (1.3-4.6) 08/21/22 19:10 Discharge Plan Discharge Patient Disposition: Admitted As Inpatient Clinical Impression: Cellulitis, Leukocytosis Condition: Stable Prescriptions: No Action montelukast [Singulair] 10 mg tablet 10 mg PO DAILY ibuprofen 800 mg tablet 800 mg PO TID PRN fluticasone propion-salmeterol [Advair Diskus] 250-50 mcg/dose blister with device 1 inh inhalation BID albuterol sulfate [Ventolin HFA] 90 mcg/actuation HFA aerosol inhaler 2 puff inhalation Q6H PRN desogestrel-ethinyl estradiol [Isibloom] 0.15-0.03 mg tablet 1 tab PO DAILY lorazepam 0.5 mg tablet 0.5 mg PO TID PRN oxybutynin chloride 5 mg tablet 5 mg PO TID hydrochlorothiazide 25 mg tablet 25 mg PO DAILY furosemide [Lasix] 40 mg tablet 40 mg PO DAILY potassium chloride 20 mEq tablet extended release 20 meq PO DAILY vitamin A and D Cream 1 applic topical DAILY Qty: 1 0RF Rx Instructions: Apply to the to the irritated skin around the wound daily. clindamycin HCl 300 mg capsule 300 mg PO TID Qty: 21 0RF triamcinolone acetonide 0.1 % cream 1 applic topical DAILY Qty: 454 2RF nystatin 100,000 unit/gram cream 1 applic topical DAILY Qty: 30 2RF Referrals: Shwetha Thomas MD [Primary Care Provider] - Coding Level of Care Code ED Centrifugal Screen Tender for Dileepg Luis
[2022-08-21] MEDS: levofloxacin-dextrose 5 % 750 MG/150 ML PREMIX 100 MG IV (19:11)
[2022-08-21 19:21] LABS: Basophils % 0.2 %; Eosinophils % 0.1 %; Hematocrit 41.7 % (37.0-47.0); Hemoglobin 13.4 g/dL (11.5-15.3); Lymphocytes # 1.5 10^3/uL (0.8-4.8); Lymphocytes % 7.5 %; Mean Corpuscular HGB Conc 32.1 g/dL (30.0-36.0); Mean Corpuscular Hemoglobin 29.2 pg (28.0-34.0); Mean Corpuscular Volume 90.8 fl (81-99); Mean Platelet Volume 9.4 fL (7.4-10.4); Monocytes # 0.5 10^3/uL (0.2-0.9); Monocytes % 2.3 %; Neutrophils # 17.89 10^3/uL (1.8-7.7); Neutrophils % 89.2 %; Nucleated Red Blood Cells % 0 %; Platelet Count 322 10^3/cmm (130-400); Red Blood Count 4.59 10^6/uL (4.1-5.3); Red Cell Distribution Width 13.2 % (12.1-15.1); White Blood Count 20.1 10^3/uL (4.0-10.0)
[2022-08-21 19:36] VITALS: BP 126/101; PULSE 110; RESP 16; O2SAT 96
[2022-08-21 19:37] LABS: Alanine Aminotransferase 16 U/L (0-33); Albumin Level 3.6 g/dL (3.5-5.2); Alkaline Phosphatase 85 U/L (35-105); Anion Gap 17.5 (5-19); Aspartate Amino Transferase 15 U/L (0-32); Blood Urea Nitrogen 14 mg/dL (6-20); Calcium 9.5 mg/dL (8.5-10.5); Carbon Dioxide 25 mmol/L (22-29); Chloride 98 mmol/L (98-107); Globulin 3.6 g/dL (1.3-4.6); Glomerular Filtration Rate 67.7 mL/min (90-130); Glucose 120 mg/dL (65-115); Osmolality Calculated 286 mOsm/kg (285-295); Potassium 3.5 mmol/L (3.5-5.1); Sodium 137 mmol/L (136-145); Total Bilirubin 0.3 mg/dL (0.15-1.2); Total Protein 7.2 g/dL (6.6-8.7)
--- NOTE | 2022-08-21 21:00 | PM.HP ---
Providers/Chief Complaint Admitting Physician: Therese Thompson MD Primary Care Provider: Shwetha Thomas MD Chief Complaint: abnormal labs History of Present Illness Chuyita Kilpatrick is a 47 year old female with PMH of asthma, LLE wound that she has been following up with wound care for presented to the hospital today after being sent from wound care clinic for cellulitis. She states she has a habit of picking on her skin and has been picking at her wound lately. Patient has extensive erythema and swelling all the way upto left side with 3 open wounds approx 1 cm diameter each by left lateral leg area. She also reports a subjective fever but has not checked it with a thermometer. She lives at assisted living facility. Denies n/v/d/abd pain/constipation/breathing issues, chest pain, sob or any other symptoms at this time. States she would like us to contact her aunt Marina for any updates. She is unable to confirm her medications at this time. Is in pain and requesting for pain medicine. Allergic to penicillin. Was given levaquin in ER. Medications/Allergies Home Medications Medication Instructions Recorded Confirmed Last Taken Type albuterol sulfate 90 mcg/actuation 2 puff inhalation Q6H PRN 08/05/20 09/06/21 Unknown History aerosol inhaler (Ventolin HFA) desogestrel 0.15 mg-ethinyl 1 tab PO DAILY 08/05/20 09/06/21 Unknown History estradiol 0.03 mg tablet (Isibloom) fluticasone 250 mcg-salmeterol 50 1 inh inhalation BID 08/05/20 09/06/21 Unknown History mcg/dose blistr powdr for inhalation (Advair Diskus) ibuprofen 800 mg tablet 800 mg PO TID PRN 08/05/20 09/06/21 Unknown History lorazepam 0.5 mg tablet 0.5 mg PO TID PRN 08/05/20 09/06/21 Unknown History montelukast 10 mg tablet 10 mg PO DAILY 08/05/20 09/06/21 Unknown History (Singulair) oxybutynin chloride 5 mg tablet 5 mg PO TID 08/05/20 09/06/21 Unknown History furosemide 40 mg tablet (Lasix) 40 mg PO DAILY 09/06/21 09/06/21 Unknown History hydrochlorothiazide 25 mg tablet 25 mg PO DAILY 09/06/21 09/06/21 Unknown History potassium chloride 20 mEq 20 meq PO DAILY 09/06/21 09/06/21 Unknown History tablet,extended release nystatin 100,000 unit/gram topical 1 applic topical DAILY fungal 02/21/22 Unknown Rx cream infection #30 grams triamcinolone acetonide 0.1 % 1 applic topical DAILY fungal 02/21/22 Unknown Rx topical cream infection #454 grams vitamin A and D 1 applic topical DAILY skin 07/19/22 07/19/22 Unknown Rx irritation #1 applic clindamycin HCl 300 mg capsule 300 mg PO TID #21 caps 08/21/22 08/21/22 Unknown Rx Allergies Allergy/AdvReac Type Severity Reaction Status Date / Time amoxicillin [From Augmentin] Allergy ALGY-Rash Verified 08/21/22 18:32 clavulanic acid Allergy ALGY-Rash Verified 08/21/22 18:32 [From Augmentin] PFSH Acute PFSH: Surgical History No history of previous surgery Family History Mother Hypertension Grandmother Clotting disorder paternal Denies family history of Colon cancer Ovarian cancer Diabetes Heart disease Hyperlipidemia Breast cancer Anesthesia complication Bleeding disorder Uterine cancer Thyroid condition Stroke Social History Smoking and tobacco status: never smoked Alcohol intake: never Substance/Drug Use: never Vitals/I&O/Wt Last Vital Signs Temp 98.1 F 08/21/22 18:32 Pulse 110 H 08/21/22 19:36 Resp 16 08/21/22 19:36 BP 126/101 08/21/22 19:36 Pulse Ox 96 08/21/22 19:36 O2 Del Method Room Air 08/21/22 18:32 08/21/22 08/21/22 08/21/22 06:59 14:59 22:59 Intake Total 150 / 150 Balance 150 / 150 Weight last 48 hrs Weight 102.512 kg Physical Exam Narrative: Young female laying in bed appearing comfortable, states she is in pain and would like pain medicine lungs clear to auscultation b/l, no wheezes or ronchi heart: normal s1, s2, no gross murmers abd soft non tender Extremities: right LE unremarkable. Left LE larger than right, extensive erythema extending upto thigh, marked with skin pen, 3 open wounds noted 1 cm diameter approx by left LE. Unable to check for depth at this time. Data 08/21/22 19:10 08/21/22 19:10 A&P Assessment and plan (1) Cellulitis: Qualifiers: Laterality: left Site of cellulitis: extremity Site of cellulitis of extremity: lower extremity Qualified Code(s): L03.116 - Cellulitis of left lower limb (2) Leukocytosis: Qualifiers: Leukocytosis type: unspecified Qualified Code(s): D72.829 - Elevated white blood cell count, unspecified Plan #LLE Cellutlis with open wounds #Asthma #Possible HF? Patient seems to be on diuretics but med list is unconfirmed, no echo on file - Check CRP, ESR, Lactic acid - NS 1L to be ordered - Place on NS 125 cc/hr - Start vanc and aztreonam - CT leg with contrast to rule out underlying abscess. Consider surgery consult if warranted after results - Duoneb q6H PRN however I don't believe she will need it as asthma is well controlled - Med rec need to be completed. Confirm meds with pharmacy - Please update Aunt Ms. Gray in AM by primary team - Check blood cultures - Repeat lactic acid with reflex - Morphine 1 mg q4h PRN for pain - Order wound care Full Code DVT PPX: heparin subc BID Attestations Medical Necessity Statement*: > 2 midnight stay for management of cellulitis Coding Level of Care Code G0425 (30 min) TH Encounter Time (min): 45 Patient seen via Telehealth in the acute care setting (hospital or ED location) by agreement and consent of patient or patient automotive leasing sales representative. Telehealth technology used during the visit includes video and audio. This patient encounter is appropriate and reasonable under the circumstances given the patient?s particular presentation at this time. The patient has been advised of the potential risks and limitations of this mode of treatment (including but not limited to the absence of in-person examination at this time) and has agreed to be treated by an off-site physician for this visit. If deemed clinically necessary from this telehealth visit, or if condition or consent for telehealth visit changes, an in-person visit will be arranged. For this encounter, total time for the origination of telehealth care on this date is as shown. Diagnoses Cellulitis L03.116 Laterality: left Site of cellulitis: extremity Site of cellulitis of extremity: lower extremity Leukocytosis D72.829 Leukocytosis type: unspecified
[2022-08-21 21:02] VITALS: BP 126/101; PULSE 110; RESP 16; TEMP 36.7; O2SAT 96
[2022-08-21 21:03] VITALS: BP 145/92; PULSE 143; RESP 20; TEMP 36.8; O2SAT 91
--- NOTE | 2022-08-21 21:08 | CTR_ITS ---
PROCEDURE INFORMATION: Exam: CT Left Lower Extremity With Contrast Exam date and time: 08/21/2022 10:59 PM Age: 47 years old Clinical indication: Pain; Ankle and hip and knee and lower leg; Ankle and knee and lower leg and thigh; Patient HX: PT has what appears to be cellulitis encompassing near entirety of left lower extremity. Wbc of 20k. Crp of 318.0; Additional info: Rule out abscess, deep infection, include thigh area ankle TECHNIQUE: Imaging protocol: CT of the left lower extremity with intravenous contrast was performed. Radiation optimization: All CT scans at this facility use at least one of these dose optimization techniques: automated exposure control; mA and/or kV adjustment per patient size (includes targeted exams where dose is matched to clinical indication); or iterative reconstruction. Contrast material: OMNI 350; Contrast volume: 100 ml; Contrast route: INTRAVENOUS (IV); REPORTING DATA: Count of CT and Cardiac NM exams in prior 12 months: This patient has received 0 known CTs and 0 known cardiac nuclear medicine studies in the 12 months prior to the current study. COMPARISON: US CV venous duplex [facility] [id number] 08/21/2022 4:50 PM RADIATION DOSE METRICS: Total DLP (mGy-cm): 1619.62 FINDINGS: Bones/joints: No obvious soft tissue ulceration, soft tissue emphysema, osteomyelitis or abscess. Soft tissues: Soft tissue swelling involving the entire leg with [id number] distally and minimal proximally most consistent with cellulitis. Vasculature: One or more calcified pelvic phleboliths. CT/CT lower leg LT w con [id number] IMPRESSION: 1. Soft tissue swelling involving the entire leg with [id number] distally and minimal proximally most consistent with cellulitis. 2. No obvious soft tissue ulceration, soft tissue emphysema, osteomyelitis or abscess.
[2022-08-21] MEDS: sodium chloride 0.9% 1,000 ML 125 ML IV (21:41)
[2022-08-21] MEDS: aztreonam 1,000 MG in sodium chloride 0.9% (plus) 50 ML 100 MG IV (21:42)
[2022-08-21] MEDS: heparin 5,000 unit/mL INJ 1 mL 5000 UNIT SUBCUT (21:42)
[2022-08-21 22:01] LABS: Erythrocyte Sedimentation Rate 43 mm/hr (0-15)
[2022-08-21 22:12] LABS: Lactic Sepsis W/Reflex 2.5 mmol/L (0.5-2.2)
[2022-08-21 22:21] LABS: Thyroid Stimulating Hormone 3.38 uIU/mL (0.27-4.20)
[2022-08-21 22:22] LABS: Procalcitonin 0.56 ng/mL (0-0.5)
[2022-08-21] MEDS: vancomycin 1,000 MG in sodium chloride 0.9% 250 ML 250 MG IV (22:23)
--- NOTE | 2022-08-21 23:07 | XRR_ITS ---
PROCEDURE INFORMATION: Exam: XR Chest Exam date and time: 08/21/2022 10:20 PM Age: 47 years old Clinical indication: Other: Baseline TECHNIQUE: Imaging protocol: Radiologic exam of the chest. Views: 1 view. COMPARISON: CR XR chest 1V [id number] 06/18/2017 7:07 PM FINDINGS: Lungs: Unremarkable. No consolidation. Pleural spaces: Unremarkable. No pleural effusion. No pneumothorax. Heart/Mediastinum: Unremarkable. No cardiomegaly. Bones/joints: Moderate thoracic spondylosis. Other findings: Possible morbid obesity. XR/XR chest 1V portable [id number] IMPRESSION: No acute findings.
[2022-08-21] MEDS: sodium chloride 0.9% 1,000 ML 999 ML IV (23:16)
[2022-08-21] MEDS: acetaminophen 325 mg Tablet 650 MG PO (23:16)
[2022-08-21 23:41] LABS: Reflex Lactate Order REFLEX LACTIC ORDERD
[2022-08-21] MEDS: clindamycin 300 MG/50 ML PREMIX 100 MG IV (23:56)
[2022-08-22] VITALS (11 sets, daily range): BP systolic 106–150; BP diastolic 69–95; PULSE 92–120; RESP 16–30; TEMP 36.3–38.6; O2SAT 90–99
[2022-08-22 01:40] LABS: Basophils # 0.1 10^3/uL (0.0-0.1); Basophils % 0.3 %; Hemoglobin 11.9 g/dL (11.5-15.3); Lymphocytes # 1.2 10^3/uL (0.8-4.8); Mean Corpuscular HGB Conc 33.1 g/dL (30.0-36.0); Mean Corpuscular Hemoglobin 30.1 pg (28.0-34.0); Mean Corpuscular Volume 91.1 fl (81-99); Mean Platelet Volume 9.7 fL (7.4-10.4); Monocytes # 0.3 10^3/uL (0.2-0.9); Neutrophils # 15.22 10^3/uL (1.8-7.7); Neutrophils % 89.9 %; Nucleated Red Blood Cells % 0 %; Platelet Count 262 10^3/cmm (130-400); Red Blood Count 3.95 10^6/uL (4.1-5.3); Red Cell Distribution Width 13.2 % (12.1-15.1); White Blood Count 16.9 10^3/uL (4.0-10.0)
[2022-08-22 02:07] LABS: Alanine Aminotransferase 13 U/L (0-33); Alkaline Phosphatase 77 U/L (35-105); Anion Gap 12.9 (5-19); Aspartate Amino Transferase 14 U/L (0-32); Blood Urea Nitrogen 12 mg/dL (6-20); Calcium 8.7 mg/dL (8.5-10.5); Carbon Dioxide 21 mmol/L (22-29); Chloride 102 mmol/L (98-107); Creatinine Clr Calc Pharmacy 109.4368; Globulin 3.1 g/dL (1.3-4.6); Glomerular Filtration Rate 90.5 mL/min (90-130); Glucose 127 mg/dL (65-115); Magnesium 1.5 mg/dL (1.7-2.3); Osmolality Calculated 277 mOsm/kg (285-295); Sodium 133 mmol/L (136-145); Total Bilirubin 0.3 mg/dL (0.15-1.2); Total Protein 6.1 g/dL (6.6-8.7)
[2022-08-22 02:11] LABS: Lactic Acid level (Lactate) 1.3 mmol/L (0.5-2.2)
[2022-08-22 02:15] LABS: Potassium 2.9 mmol/L (3.5-5.1)
[2022-08-22] MEDS: sodium chloride 0.9% 1,000 ML 125 ML IV (02:18)
[2022-08-22] MEDS: potassium chloride ER 20 mEq Tablet 40 MEQ PO (03:28)
--- NOTE | 2022-08-22 07:52 | PC.PHAR ---
Addendum entered by Justyna Tuttle 08/22/22 08:42: clindamycin 300mg tid not on mar from [facility] on 08/22/22-rx written and filled 08/21/22 Original Note: pt is from [facility]-lesa pat from [facility] will fax over mar and tar
[2022-08-22] MEDS: clindamycin 300 MG/50 ML PREMIX 100 MG IV ×3 (08:30→23:05)
[2022-08-22] MEDS: aztreonam 1,000 MG in sodium chloride 0.9% (plus) 50 ML 100 MG IV ×2 (08:32→22:23)
[2022-08-22] MEDS: heparin 5,000 unit/mL INJ 1 mL 5000 UNIT SUBCUT ×2 (08:40→22:23)
[2022-08-22] MEDS: montelukast sodium 10 mg Tablet PO (08:40)
[2022-08-22] MEDS: sodium chloride 0.9% 1,000 ML 999 ML IV (10:31)
--- NOTE | 2022-08-22 10:40 | PM.PN ---
Subjective Subjective: Sepsis criteria met with fever tachycardia tachypnea leukocytosis lactic acid Judicious use of fluid for septic bolus because she has congestive heart failure and clinically is volume overloaded I will only give her 1 more liter as she had received 1 L overnight Lactic acid improved this morning Cultures have been taken Hypokalemia and hypomagnesemia repleted Family at the bedside Vitals/I&O/Wt Last Vital Signs Temp 99.3 F 08/22/22 08:00 Pulse 103 H 08/22/22 08:00 Resp 24 H 08/22/22 08:00 BP 126/94 08/22/22 08:00 Pulse Ox 90 08/22/22 08:00 O2 Del Method Room Air 08/22/22 08:00 08/21/22 08/22/22 08/22/22 22:59 06:59 14:59 Intake Total 150 / 150 577.083 / 663.390 9252 / 2622 Output Total 0 / 0 Balance 150 / 150 577.083 / 269.354 8194 / 2622 Weight last 48 hrs Weight 102.512 kg Physical Exam Narrative: Patient is very anxious Emotionally labile Currently on room air Clinical signs of fluid overload Left lower extremity cellulitis has been marked Low 70 edema 1+ Abdomen distended nontender Nonfocal neuro exam Currently doing well on room air No skin mottling Adequate urine output Good capillary refills Data 08/22/22 01:18 08/22/22 01:18 Micro: Microbiology 08/21/22 21:36 Blood Culture - Preliminary Blood SPECIMEN COLLECTED 08/21/22 21:36 Blood Culture - Preliminary Blood SPECIMEN COLLECTED A&P Assessment and plan (1) Cellulitis: Qualifiers: Laterality: left Site of cellulitis: extremity Site of cellulitis of extremity: lower extremity Qualified Code(s): L03.116 - Cellulitis of left lower limb (2) Sepsis: (3) Leukocytosis: Qualifiers: Leukocytosis type: unspecified Qualified Code(s): D72.829 - Elevated white blood cell count, unspecified (4) Hypokalemia: (5) Hypomagnesemia: Plan lChronic lower extremity wound Follows up at wound care clinic Active cellulitis without abscess Sepsis related to cellulitis Currently on broad-spectrum antibiotics with clindamycin Would limited fluid resuscitation because of active signs of volume overload Lactic acid improving Cultures taken Hemodynamically stable for now Currently on room air Full code Cardiac diet For anxiety continue Xanax for leg pain continue morphine along oxycodone Discontinue normal saline because of active signs of volume overload after her boluses DVT prophylaxis: With heparin Complex discharge, family is at the bedside She is from assisted living Attestations Medical Necessity Statement*: Continue medical management Diagnoses Cellulitis L03.116 Laterality: left Site of cellulitis: extremity Site of cellulitis of extremity: lower extremity Sepsis A41.9 Leukocytosis D72.829 Leukocytosis type: unspecified Hypokalemia E87.6 Hypomagnesemia E83.42
--- NOTE | 2022-08-22 10:40 | PC.CHAP ---
Pastoral Care Encounter/Spiritual Assessment Type of Contact [] Declined automotive dismantler visit [] Patient/Family/Request visit [] Outpatient visit [] Follow-up visit [] Physician referral [] Code/Alert [x] Routine visit [] Staff referral [] Actively dying [] Patient sleeping [x] Family support [] [] Out of room [] Palliative care [] [] Receiving care in room [] Pre-surgical visit [] Trauma [] Long length of stay [] ICU visit [] Other: Relational/Emotional Strength [] Patient feels connected with others/family/visitors/staff [] Distress [] Loneliness/isolation [] Abandonment Spirituality of Patient x] Person of Suzanne [] Attends Church of their Suzanne [x] Believes in Prayer [] Reads Bible or Hinduism materials [] There are Spiritual issues to be addressed Wire Strander Interventions [x] Prayer [x] Active listening [x] Non-anxious presence [] Spiritual/emotional support [] Crisis/trauma care [] Spiritual counseling [] Bereavement support [] Provided bereavement packet [] Provided Bible/devotional materials [] Provided toy/stuffed animal, coloring book to patient or family member [] Provided Communion [] Anointing/[place] [] Salvation [x] Completed spiritual assessment [] Other: Impact on Illness or Injury [] Angry [] Fearful [] Anxious [] Often cries [] Exhaustion [] Unable to work [] Unable to attend congregation [] Unable to walk/stand [] Unable to read [] Unable to drive [] Unable to eat/drink [] Unable to sleep [] Unable to be with family [] Patient intubated [] Other: Summary Time spent with patient 10 min
[2022-08-22] MEDS: potassium chloride premix 100 ML 25 MEQ IV ×2 (11:33→16:04)
[2022-08-22] MEDS: LORazepam 0.5 mg Tablet PO ×3 (12:04→22:29)
--- NOTE | 2022-08-22 12:11 | PC.NURSE ---
VS-clients respirations are elevated, report given to Eduardo. He is planning on giving anti-anxiety medications.
[2022-08-22] MEDS: morphine 4 mg/mL SDV 1 mL 2 MG IVP ×3 (12:27→23:30)
--- NOTE | 2022-08-22 15:15 | PC.NURSE ---
Single lumen PICC placed to right basilic vein without difficulty. Informed consent obtained from patient guardian over phone with two nurse verification. Pt has poor peripheral access and is receiving potassium and antibiotics. Mid-arm circumference measured 10 cm from right AC 41 cm. Trimmed cath length 43 cm with 1 cm external length noted. CXR confirms cath tip in SVC, in good position to use per radiologist. EBL <10 mL. Dressing due to be changed 08/23/22. Report given to bedside nurseEduardo.
--- NOTE | 2022-08-22 15:23 | XR_ITS ---
WS: [id number] Portable AP upright chest, 08/22/2022 Clinical Data: post picc Comparison: Portable chest, 08/21/2022 Findings: A right PICC line enters the right subclavian vein and then ends in the superior vena cava. No pneumothorax is seen. XR/XR chest 1V portable [id number] Impression: Satisfactory position of right PICC line.
[2022-08-22] MEDS: acetaminophen 325 mg Tablet 650 MG PO (16:12)
[2022-08-22] MEDS: vancomycin 1,000 MG in sodium chloride 0.9% 250 ML 250 MG IV (16:46)
[2022-08-22 20:31] LABS: Glucose Point of Care 180 mg/dL (70-110)
[2022-08-22] MEDS: oxybutynin 5 mg Tablet PO (22:23)
[2022-08-23] VITALS (9 sets, daily range): BP systolic 109–125; BP diastolic 83–89; PULSE 56–108; RESP 16–18; TEMP 36.4–37.6; O2SAT 95–100
[2022-08-23 03:53] LABS: Basophils % 0.2 %; Eosinophils % 0.1 %; Hematocrit 35.9 % (37.0-47.0); Hemoglobin 11.4 g/dL (11.5-15.3); Lymphocytes # 1.9 10^3/uL (0.8-4.8); Lymphocytes % 12.9 %; Mean Corpuscular HGB Conc 31.8 g/dL (30.0-36.0); Mean Corpuscular Hemoglobin 28.7 pg (28.0-34.0); Mean Corpuscular Volume 90.4 fl (81-99); Mean Platelet Volume 9.9 fL (7.4-10.4); Monocytes # 0.6 10^3/uL (0.2-0.9); Neutrophils # 12.19 10^3/uL (1.8-7.7); Neutrophils % 82.1 %; Nucleated Red Blood Cells % 0 %; Platelet Count 198 10^3/cmm (130-400); Red Blood Count 3.97 10^6/uL (4.1-5.3); Red Cell Distribution Width 13.2 % (12.1-15.1); White Blood Count 14.9 10^3/uL (4.0-10.0)
[2022-08-23 04:15] LABS: Blood Urea Nitrogen 9 mg/dL (6-20); Calcium 7.9 mg/dL (8.5-10.5); Carbon Dioxide 19 mmol/L (22-29); Chloride 101 mmol/L (98-107); Glomerular Filtration Rate 172.6 mL/min (90-130); Glucose 141 mg/dL (65-115); Osmolality Calculated 275 mOsm/kg (285-295); Sodium 132 mmol/L (136-145)
[2022-08-23 04:16] LABS: Anion Gap 15.7 (5-19); Potassium 3.7 mmol/L (3.5-5.1)
[2022-08-23] MEDS: potassium chloride ER 20 mEq Tablet PO (05:16)
[2022-08-23] MEDS: oxybutynin 5 mg Tablet PO ×2 (05:16→20:17)
[2022-08-23] MEDS: FUROsemide 40 mg Tablet PO (05:16)
[2022-08-23] MEDS: acetaminophen 325 mg Tablet 650 MG PO ×2 (05:17→20:17)
[2022-08-23] MEDS: heparin 5,000 unit/mL INJ 1 mL 5000 UNIT SUBCUT ×2 (08:36→20:23)
[2022-08-23] MEDS: montelukast sodium 10 mg Tablet PO (08:36)
[2022-08-23] MEDS: nystatin cream 30 gm 1 APPLIC TOPICAL (08:37)
[2022-08-23] MEDS: collagenase oint 30 gm 1 APPLIC TOPICAL (08:37)
[2022-08-23] MEDS: clindamycin 300 MG/50 ML PREMIX 100 MG IV ×2 (08:38→17:07)
[2022-08-23] MEDS: aztreonam 1,000 MG in sodium chloride 0.9% (plus) 50 ML 100 MG IV ×2 (08:51→20:39)
[2022-08-23 09:27] LABS: D Dimer 2.39 ug/mIFEU (0-0.59)
--- NOTE | 2022-08-23 09:29 | PC.PHAR ---
Dose changed due to improved renal function Scr from 0.9 5-23 to 0.4 5-25. Trough to be drawn before 3rd dose... 5-26 @0900 Patient: Floor: Age: 47 yo Serum creatinine: 0.6 mg/dL Height: 59.8 Inches Weight (kg): 102 IBW (kg): 45.35 Dosing wt(kg): 68.0 Estimated Creatinine clearance (ml/min): 84.8 CRCL method: Cockcroft and Gault using ibw(default). Drug selected: Vancomycin Loading dose (mg): Vd (liters): 47.6 (factor used: 0.7 L/kg) Bryant (hr-1): 0.075 Half life (hrs): 9.24 CLvanco=?? 3.570 L/hr Recommended dose: 1250 mg Interval: 12 hrs Infusion time (hrs): 1 Predicted peak (mcg/mL): 42.6 Predicted trough (mcg/mL): 18.67 Adjusted body weight was selected for vancomycin dosing. To switch back, select the total body weight option above. Recommendations: Give Vancomycin 1250 mg q 12 hrs with an expected Cpeak of 42.6 mcg/ml and an expected Ctrough of 18.67 mcg/ml AUC 0-24 /LYN Data: LYN 0.5 mcg/mL:?? AUC/LYN:? 1400.6 LYN 1.0 mcg/mL:?? AUC/LYN:? 700.3 --------- LYN 1.5 mcg/mL:?? AUC/LYN:? 466.9 LYN 2.0 mcg/mL:?? AUC/LYN:? 350.1 Renal dosing of other antibiotics (review renal dosing of other medications and list guidelines here): Thank you for the consult, will continue to follow. Signature:
--- NOTE | 2022-08-23 10:25 | PM.PN ---
Subjective Subjective: Fever 101 noted yesterday Leukocytosis trending down No overnight events Patient was concerned about blister formation on her left knee Cellulitis seems to be regressing from the markings Venous Doppler requested D-dimer 2.3 Cultures negative to date Previous wound culture positive for MRSA and Pseudomonas Vitals/I&O/Wt Last Vital Signs Temp 99.6 F 08/23/22 07:51 Pulse 99 08/23/22 08:03 Resp 16 08/23/22 08:03 BP 119/83 08/23/22 07:51 Pulse Ox 99 08/23/22 08:03 O2 Del Method Nasal Cannula 08/23/22 08:03 O2 Flow Rate 1 08/23/22 08:03 08/22/22 08/23/22 08/23/22 22:59 06:59 14:59 Intake Total 620 / 4482 100 / 4582 340 / 340 Balance 620 / 4482 100 / 4582 340 / 340 Weight last 48 hrs Weight 102.512 kg Physical Exam Narrative: Awake and alert Morbidly obese Signs of volume overload Left leg cellulitis seems to be progressing from the markings Blister formation around left knee No crepitation No signs of vascular compromise of toes Awake and alert GCS 15 Intellectually challenged Currently on room air Data 08/23/22 03:13 08/23/22 03:13 Micro: Microbiology 08/21/22 21:36 Blood Culture - Preliminary Blood NEGATIVE TO DATE 08/21/22 21:36 Blood Culture - Preliminary Blood NEGATIVE TO DATE A&P Assessment and plan (1) Hypomagnesemia: (2) Hypokalemia: (3) Cellulitis: Qualifiers: Laterality: left Site of cellulitis: extremity Site of cellulitis of extremity: lower extremity Qualified Code(s): L03.116 - Cellulitis of left lower limb (4) Sepsis: (5) Leukocytosis: Qualifiers: Leukocytosis type: unspecified Qualified Code(s): D72.829 - Elevated white blood cell count, unspecified (6) Acute exacerbation of CHF (congestive heart failure): Plan Sepsis related to cellulitis of left leg Cultures negative to date Leukocytosis lying down Febrile event noted yesterday Judicious fluids given because of her volume overload status Acute CHF exacerbation EF is unknown Volume overload: I will change her p.o. Lasix to Bumex 1 mg IV push, monitor electrolytes Check BNP Patient is currently on room air We will request echo to know her EF Left leg wound, Santyl dressing on daily basis Left knee blister: Monitor for now Intellectually challenged, family updated Cardiac diet Full code DVT prophylaxis heparin Right arm PICC line placed 08/22 because of poor IV access, cultures are negative to date I am hoping she will be able to go back to her [facility] on p.o. antibiotics over the weekend Attestations Medical Necessity Statement*: Continue medical management Diagnoses Hypomagnesemia E83.42 Hypokalemia E87.6 Cellulitis L03.116 Laterality: left Site of cellulitis: extremity Site of cellulitis of extremity: lower extremity Sepsis A41.9 Leukocytosis D72.829 Leukocytosis type: unspecified Acute exacerbation of CHF (congestive heart failure) I50.9
--- NOTE | 2022-08-23 10:29 | USCV_ITS ---
Chuyita Kilpatrick Age: 47 Gender: F : 1975 Exam Date: 08/23/2022 14:41 Ordering Phys: Matt Washington MD Technologist: Rafy Jang Exam Location: [facility] [place] Indication: pedal edema ?chf BP: 132 / 74 HR: 107 Rhythm: Sinus Technical Quality: Adequate MEASUREMENTS (Male / Female) Normal Values 2D ECHO LV Diastolic Diameter PLAX 2.8 cm 4.2 - 5.9 / 3.9 - 5.3 cm LV Systolic Diameter PLAX 1.8 cm IVS Diastolic Thickness 1.2 cm 0.6 - 1.0 / 0.6 - 0.9 cm IVS Systolic Thickness 1.3 cm LVPW Diastolic Thickness 1.2 cm 0.6 - 1.0 / 0.6 - 0.9 cm LVPW Systolic Thickness 1.3 cm LVOT Diameter 2.0 cm LV Ejection Fraction 2D Teich 67.3 % LV Ejection Fraction MOD 2C 53.0 % LV Ejection Fraction 2C AL 52.3 % LA Diameter 3.6 cm Aorta at Sinotubular Diameter 2.2 cm M-MODE Aortic Annulus Diameter 3.2 cm LA Ao Ratio MM 1.3 MV E Point Septal Separation 1.0 cm DOPPLER AV Peak Velocity 131.0 cm/s LVOT Peak Velocity 108.0 cm/s AV Area Cont Eq vti 2.9 cm squared AV Area Cont Eq pk 2.6 cm squared MV Area PHT 5.0 cm squared Mitral E to A Ratio 0.8 MV E' Velocity 68.0 cm/s Mitral E to LV E' Septal Ratio 8.8 TR Peak Velocity 132.7 cm/s TR Peak Gradient 7.0 mmHg TV Peak E Velocity 82.0 cm/s Right Atrial Pressure 3.0 mmHg Pulmonary Artery Systolic Pressu 10.0 mmHg RV Acceleration Time 0.1 s FINDINGS Left Ventricle Normal left ventricular size, systolic function and wall thickness, with no regional wall motion abnormalities. Left ventricular ejection fraction is estimated at 55 %. Normal diastolic function. Right Ventricle Normal right ventricular size and systolic function. Right Atrium Normal right atrial size. Left Atrium Normal left atrial size. Mitral Valve Structurally normal mitral valve. No mitral valve stenosis. Trace mitral valve regurgitation. Aortic Valve Aortic valve not well visualized. No aortic valve stenosis. Tricuspid Valve Structurally normal tricuspid valve. Trace tricuspid valve regurgitation. Pulmonic Valve Pulmonic valve not well visualized. Pericardium No pericardial effusion. Aorta Aorta not well visualized. IVC Inferior vena cava not visualized. CONCLUSIONS 1. Normal left ventricular size, systolic function and wall thickness, with no regional wall motion abnormalities. Left ventricular ejection fraction is estimated at 55 %. 2. No prior similar studies to compare. Jennyfer Dhillon MD (Electronically Signed) Final Date: 23 Aug 2022 21:39 S
[2022-08-23] MEDS: vancomycin 1,250 MG/250 ML PIGGYBACK 200 MG IV ×2 (10:52→22:17)
[2022-08-23] MEDS: bumetanide 0.25 mg/mL SDV 4 mL 1 MG IVP (12:08)
--- NOTE | 2022-08-23 13:00 | PC.NURSE ---
Sterile dressing change to right upper arm PICC complete. Old dressing with gauze removed. Small amount old bloody drainage noted. Site clear without redness, drainage, or bruising. Biopatch CHG disk applied and secured with Sorbaview transparent semipermeable membrane (TSM) dressing. Pt tolerated well.
[2022-08-23] MEDS: perflutren protein-a microsphr 0.22 mg/mL SDV 3 mL IV (15:01)
[2022-08-23] MEDS: morphine 4 mg/mL SDV 1 mL 2 MG IVP (16:00)
[2022-08-24] VITALS (10 sets, daily range): BP systolic 110–124; BP diastolic 73–81; PULSE 73–96; RESP 14–18; TEMP 36.7–37.1; O2SAT 94–98
[2022-08-24] MEDS: oxybutynin 5 mg Tablet PO ×2 (06:05→20:38)
[2022-08-24] MEDS: acetaminophen 325 mg Tablet 650 MG PO (06:06)
[2022-08-24] MEDS: potassium chloride ER 20 mEq Tablet PO (06:06)
[2022-08-24 07:21] LABS: Basophils % 0.2 %; Eosinophils # 0.2 10^3/uL (0.0-0.8); Eosinophils % 1.5 %; Hematocrit 34.6 % (37.0-47.0); Hemoglobin 11.1 g/dL (11.5-15.3); Lymphocytes % 15.8 %; Mean Corpuscular HGB Conc 32.1 g/dL (30.0-36.0); Mean Corpuscular Hemoglobin 28.8 pg (28.0-34.0); Mean Corpuscular Volume 89.9 fl (81-99); Mean Platelet Volume 9.3 fL (7.4-10.4); Monocytes # 0.9 10^3/uL (0.2-0.9); Monocytes % 6.9 %; Neutrophils # 9.64 10^3/uL (1.8-7.7); Neutrophils % 74.7 %; Nucleated Red Blood Cells % 0 %; Platelet Count 225 10^3/cmm (130-400); Red Blood Count 3.85 10^6/uL (4.1-5.3); White Blood Count 12.9 10^3/uL (4.0-10.0)
[2022-08-24 07:42] LABS: Anion Gap 13.3 (5-19); Blood Urea Nitrogen 9 mg/dL (6-20); Calcium 8.3 mg/dL (8.5-10.5); Carbon Dioxide 23 mmol/L (22-29); Chloride 103 mmol/L (98-107); Glomerular Filtration Rate 133.4 mL/min (90-130); Glucose 102 mg/dL (65-115); Osmolality Calculated 281 mOsm/kg (285-295); Potassium 3.3 mmol/L (3.5-5.1); Sodium 136 mmol/L (136-145)
[2022-08-24 07:58] LABS: NT Pro B Type Natriuretic Pept 82 pg/mL (0-125)
[2022-08-24] MEDS: nystatin cream 30 gm 1 APPLIC TOPICAL (09:39)
[2022-08-24] MEDS: collagenase oint 30 gm 1 APPLIC TOPICAL (09:39)
[2022-08-24] MEDS: heparin 5,000 unit/mL INJ 1 mL 5000 UNIT SUBCUT ×2 (09:40→20:37)
[2022-08-24] MEDS: montelukast sodium 10 mg Tablet PO (09:40)
[2022-08-24] MEDS: vancomycin 1,250 MG/250 ML PIGGYBACK 200 MG IV (09:41)
[2022-08-24] MEDS: aztreonam 1,000 MG in sodium chloride 0.9% (plus) 50 ML 100 MG IV ×2 (09:41→20:38)
[2022-08-24 10:23] LABS: Vancomycin Trough 8.3 ug/mL (10-15)
[2022-08-24] MEDS: bumetanide 0.25 mg/mL SDV 4 mL 1 MG IVP (11:33)
--- NOTE | 2022-08-24 11:42 | PC.SOCIAL ---
IMM Update pg 2 of IMM updated and reviewed w/ patient's guardian Marina. Copy provided and Copy dated, initialed and placed in chart.
--- NOTE | 2022-08-24 15:43 | PC.PHAR ---
PHARMACY TO DOSE CONSULT - VANCOMYCIN With the patient's trough coming back at 8.3 ug/mL, we are going to increase her dosage up to 1500mg every 12 hours. This calculated a predicted peak of 40.1 mcg/ml and a trough of 11.70 with current renal function. Pharmacy will draw a trough prior to the 4th dose and adjust the dose/frequency based on the findings. Pharmacy will also continue to monitor the patient's renal function and make adjustments based on those as well. Please let us know if there is anything else that we can help with. Thanks, Gordy Lara, Pharm.D
[2022-08-24] MEDS: vancomycin 1,500 MG/300 ML PIGGYBACK 200 MG IV (21:31)
--- NOTE | 2022-08-24 22:43 | P.PN_ITS ---
Subjective Subjective: Patient's family member, aunt ?, was in the room with patient. Very supportive. Patient reports continued severe cellulitis of her left leg. She is unsure if it is better or not. She notes the fluid blisters forming. Endorses pain. Denies fevers or chills. Reports appetite is OK. Only ambulating in the room so far. Medications: Reviewed: Yes Vitals/I&O/Wt Last Vital Signs Temp 98.1 F 08/24/22 20:00 Pulse 92 08/24/22 20:00 Resp 18 08/24/22 20:00 BP 110/73 08/24/22 20:00 Pulse Ox 94 08/24/22 20:00 O2 Del Method Room Air 08/24/22 20:00 O2 Flow Rate 1 08/24/22 08:45 08/24/22 08/24/22 08/24/22 06:59 14:59 22:59 Intake Total 250 / 1040 660 / 660 410 / 1070 Balance 250 / 1040 660 / 660 410 / 1070 Physical Exam Narrative: General: Patient is awake and alert. Lying in bed. Head: Atraumatic. EOM intact. Neck: No JVD. Cardiovascular: RRR. No gallops. No murmurs. No peripheral edema. Lungs: Clear to auscultation, no use of accessory muscles, no crackles or wheezes. Skin: No jaundice. Left leg is severely swollen, erythematous and tender to palpation from foot to inguinal crease. Abdomen: Normal bowel sounds, abdomen soft and nontender. Genito Urinary: Genital exam not performed since complaints not related. Rectal: Rectal exam not performed since no symptoms indicated blood loss. Extremities: No cyanosis or clubbing. Musculoskeletal: Normal muscle mass for age. Neurological: Moves all 4 extremities. No myoclonus. Data 08/24/22 06:50 08/24/22 06:50 A&P Assessment and plan (1) Hypomagnesemia: (2) Hypokalemia: (3) Cellulitis: Qualifiers: Laterality: left Site of cellulitis: extremity Site of cellulitis of extremity: lower extremity Qualified Code(s): L03.116 - Cellulitis of left lower limb (4) Leukocytosis: Qualifiers: Leukocytosis type: unspecified Qualified Code(s): D72.829 - Elevated white blood cell count, unspecified (5) Acute exacerbation of CHF (congestive heart failure): Plan Severe cellulitis of left leg -Continue vancomycin -Continue aztreonam -Cellulitis is not responding to treatment as intended, may need prolonged IV abx pending clinical course Acute CHF exacerbation -Follow up echo -Continue diuresis Left leg wound -Continue wound care Left knee blister -Monitor for now, optimize fluid balance Intellectually challenged -Mentation may be at baseline Code Status: FULL Attestations Medical Necessity Statement*: Patient requires ongoing medical care for severe cellulitis, IV abx, cultures, labs, and supportive care. Coding Level of Care Code Acute Code for [facility] Fwd Diagnoses Hypomagnesemia E83.42 Hypokalemia E87.6 Cellulitis L03.116 Laterality: left Site of cellulitis: extremity Site of cellulitis of extremity: lower extremity Leukocytosis D72.829 Leukocytosis type: unspecified Acute exacerbation of CHF (congestive heart failure) I50.9
[2022-08-25] VITALS (9 sets, daily range): BP systolic 120–145; BP diastolic 75–94; PULSE 82–96; RESP 16–18; TEMP 36.6–37.1; O2SAT 95–98
[2022-08-25] MEDS: potassium chloride ER 20 mEq Tablet PO (05:50)
[2022-08-25] MEDS: oxybutynin 5 mg Tablet PO ×2 (05:50→21:39)
[2022-08-25 05:56] LABS: Basophils # 0.1 10^3/uL (0.0-0.1); Basophils % 0.4 %; Eosinophils # 0.4 10^3/uL (0.0-0.8); Eosinophils % 2.5 %; Hematocrit 37.7 % (37.0-47.0); Hemoglobin 12.3 g/dL (11.5-15.3); Lymphocytes # 2.8 10^3/uL (0.8-4.8); Lymphocytes % 18.8 %; Mean Corpuscular HGB Conc 32.6 g/dL (30.0-36.0); Mean Corpuscular Hemoglobin 29.4 pg (28.0-34.0); Mean Platelet Volume 9.3 fL (7.4-10.4); Monocytes # 0.9 10^3/uL (0.2-0.9); Monocytes % 5.9 %; Neutrophils # 10.66 10^3/uL (1.8-7.7); Neutrophils % 70.6 %; Nucleated Red Blood Cells % 0 %; Platelet Count 260 10^3/cmm (130-400); Red Blood Count 4.19 10^6/uL (4.1-5.3); Red Cell Distribution Width 13.2 % (12.1-15.1); White Blood Count 15.1 10^3/uL (4.0-10.0)
[2022-08-25 06:18] LABS: Albumin Level 2.9 g/dL (3.5-5.2); Blood Urea Nitrogen 11 mg/dL (6-20); Calcium 9.1 mg/dL (8.5-10.5); Carbon Dioxide 22 mmol/L (22-29); Chloride 104 mmol/L (98-107); Glomerular Filtration Rate 133.4 mL/min (90-130); Glucose 105 mg/dL (65-115); Magnesium 1.8 mg/dL (1.7-2.3); Phosphorus 2.7 mg/dL (2.5-4.5); Sodium 139 mmol/L (136-145)
[2022-08-25 06:25] LABS: Anion Gap 16.7 (5-19); Potassium 3.7 mmol/L (3.5-5.1)
[2022-08-25] MEDS: aztreonam 1,000 MG in sodium chloride 0.9% (plus) 50 ML 100 MG IV (09:49)
[2022-08-25] MEDS: heparin 5,000 unit/mL INJ 1 mL 5000 UNIT SUBCUT ×2 (09:49→21:39)
[2022-08-25] MEDS: montelukast sodium 10 mg Tablet PO (09:49)
[2022-08-25] MEDS: collagenase oint 30 gm 1 APPLIC TOPICAL (09:50)
[2022-08-25] MEDS: nystatin cream 30 gm 1 APPLIC TOPICAL (09:50)
[2022-08-25] MEDS: vancomycin 1,500 MG/300 ML PIGGYBACK 200 MG IV ×2 (10:51→21:39)
[2022-08-25] MEDS: bumetanide 0.25 mg/mL SDV 4 mL 1 MG IVP (11:23)
--- NOTE | 2022-08-25 17:30 | P.PN_ITS ---
Subjective Subjective: Patient reports ongoing swelling, redness and tenderness of her left lower extremity. The fluid blisters have reportedly popped. Patient reports she feels a little better today. Reports family visited this morning with more expected this afternoon. Discussed plan of care and she was in agreement. Medications: Reviewed: Yes Vitals/I&O/Wt Last Vital Signs Temp 98.1 F 08/25/22 16:00 Pulse 89 08/25/22 16:00 Resp 18 08/25/22 16:00 BP 130/80 08/25/22 16:00 Pulse Ox 96 08/25/22 16:00 O2 Del Method Room Air 08/25/22 16:00 O2 Flow Rate 1 08/24/22 08:45 08/25/22 08/25/22 08/25/22 06:59 14:59 22:59 Intake Total 300 / 1370 710 / 710 Balance 300 / 1370 710 / 710 Physical Exam Narrative: General: Patient is awake and alert. Lying in bed. Pleasant. Head: Atraumatic. EOM intact. Neck: No JVD. Cardiovascular: RRR. No gallops. No murmurs. PICC line. Lungs: Clear to auscultation, no use of accessory muscles, no crackles or wheezes. Skin: No jaundice. Left leg is swollen, erythematous and tender to palpation from foot to inguinal crease. Distribution similiar to yesterdays exam but er ythema showing some improvement. Abdomen: Normal bowel sounds, abdomen soft and nontender. Extremities: No cyanosis or clubbing. Musculoskeletal: Normal muscle mass for age. Neurological: Moves all 4 extremities. No myoclonus. Data 08/25/22 05:40 08/25/22 05:40 A&P Assessment and plan (1) Cellulitis: Severe cellulitis involving most the left lower extremity Discontinue aztreonam Start ceftriaxone Continue vancomycin MRSA swab ordered BCx reviewed, no growth Supportive care Wound care of blisters Qualifiers: Laterality: left Site of cellulitis: extremity Site of cellulitis of extremity: lower extremity Qualified Code(s): L03.116 - Cellulitis of left lower limb (2) Leukocytosis: Worse today, suspect component of hemoconcentration Continue to monitor Qualifiers: Leukocytosis type: unspecified Qualified Code(s): D72.829 - Elevated white blood cell count, unspecified (3) Acute exacerbation of CHF (congestive heart failure): Continuue IV bumex Strict I&Os Daily weights (4) Hypokalemia: Continue supplementation (5) Hypomagnesemia: Resolved (6) Intellectual disability: Plan to d/c back to senior care on oral abx if she improves Plan DVT ppx: Heparin Code Status: Full Code Attestations Medical Necessity Statement*: Patient requires ongoing hospitalization for IV Bumex, IV antibiotics, and supportive care. Coding Level of Care Code Acute Code for [facility] Fwd Diagnoses Cellulitis L03.116 Laterality: left Site of cellulitis: extremity Site of cellulitis of extremity: lower extremity Leukocytosis D72.829 Leukocytosis type: unspecified Acute exacerbation of CHF (congestive heart failure) I50.9 Hypokalemia E87.6 Hypomagnesemia E83.42 Intellectual disability F79
[2022-08-26] VITALS (10 sets, daily range): BP systolic 101–138; BP diastolic 71–91; PULSE 70–92; RESP 17–19; TEMP 36.5–37.3; O2SAT 96–99
[2022-08-26] MEDS: potassium chloride ER 20 mEq Tablet PO (05:52)
[2022-08-26] MEDS: oxybutynin 5 mg Tablet PO ×2 (05:52→20:48)
[2022-08-26 05:58] LABS: Basophils # 0.1 10^3/uL (0.0-0.1); Basophils % 0.4 %; Eosinophils # 0.5 10^3/uL (0.0-0.8); Eosinophils % 3.4 %; Hematocrit 36.5 % (37.0-47.0); Hemoglobin 11.6 g/dL (11.5-15.3); Lymphocytes # 2.8 10^3/uL (0.8-4.8); Mean Corpuscular HGB Conc 31.8 g/dL (30.0-36.0); Mean Corpuscular Hemoglobin 28.6 pg (28.0-34.0); Mean Corpuscular Volume 90.1 fl (81-99); Monocytes # 0.7 10^3/uL (0.2-0.9); Monocytes % 4.9 %; Neutrophils # 9.73 10^3/uL (1.8-7.7); Neutrophils % 69.1 %; Nucleated Red Blood Cells % 0 %; Platelet Count 266 10^3/cmm (130-400); Red Blood Count 4.05 10^6/uL (4.1-5.3); Red Cell Distribution Width 13.3 % (12.1-15.1); White Blood Count 14.1 10^3/uL (4.0-10.0)
[2022-08-26 06:12] LABS: Albumin Level 2.9 g/dL (3.5-5.2); Anion Gap 12.4 (5-19); Blood Urea Nitrogen 15 mg/dL (6-20); Calcium 9.1 mg/dL (8.5-10.5); Carbon Dioxide 24 mmol/L (22-29); Chloride 106 mmol/L (98-107); Glomerular Filtration Rate 172.6 mL/min (90-130); Glucose 93 mg/dL (65-115); Phosphorus 2.8 mg/dL (2.5-4.5); Potassium 3.4 mmol/L (3.5-5.1); Sodium 139 mmol/L (136-145)
[2022-08-26] MEDS: cefTRIAXone 1,000 MG in sodium chloride 0.9% (plus) 50 ML 100 MG IV (09:39)
[2022-08-26] MEDS: heparin 5,000 unit/mL INJ 1 mL 5000 UNIT SUBCUT ×2 (09:39→20:48)
[2022-08-26] MEDS: montelukast sodium 10 mg Tablet PO (09:39)
[2022-08-26] MEDS: nystatin cream 30 gm 1 APPLIC TOPICAL (10:00)
[2022-08-26 10:08] LABS: Vancomycin Trough 9.2 ug/mL (10-15)
[2022-08-26] MEDS: bumetanide 1 mg Tablet PO (13:00)
--- NOTE | 2022-08-26 13:46 | PC.SOCIAL ---
IMM Update pg 2 of IMM updated and reviewed w/ patients guardian Marina via phone. Copy left @ bedside and Copy dated, initialed and placed in chart.
--- NOTE | 2022-08-26 14:00 | PC.NURSE ---
Patient ambulated around the nurses station x1 with a steady gait her walker.
--- NOTE | 2022-08-26 15:33 | P.PN_ITS ---
Subjective Subjective: Patient reports she is feeling a little better today. Still reporting swelling, redness and tenderness of her left lower extremity improved from prior days. Denies nausea, emesis, fever, or chills. Encouraged OOB and ambulation. Medications: Reviewed: Yes Vitals/I&O/Wt Last Vital Signs Temp 97.7 F 08/26/22 12:00 Pulse 75 08/26/22 12:00 Resp 17 08/26/22 12:00 BP 121/74 08/26/22 12:00 Pulse Ox 97 08/26/22 12:00 O2 Del Method Room Air 08/26/22 12:00 O2 Flow Rate 1 08/24/22 08:45 08/26/22 08/26/22 08/26/22 06:59 14:59 22:59 Intake Total 300 / 1730 1010 / 1010 Balance 300 / 1730 1010 / 1010 Physical Exam Narrative: General: Patient is awake and alert. Lying in bed. Pleasant. Head: Atraumatic. EOM intact. Neck: No JVD. Cardiovascular: RRR. No gallops. No murmurs. PICC line in left arm. Lungs: Clear to auscultation, no use of accessory muscles, no crackles or wheezes. Skin: No jaundice. Left leg is swollen, erythematous and tender to palpation from foot to inguinal crease. 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 Extremities: No cyanosis or clubbing. Musculoskeletal: Normal muscle mass for age. Neurological: Moves all 4 extremities. No myoclonus. Data 08/26/22 05:42 08/26/22 05:42 A&P Assessment and plan (1) Cellulitis: Severe cellulitis involving most the left lower extremity, improving w/ tx Discontinue ceftriaxone Start cefdinir Discontinue vancomycin Start doxycycline Supportive care Wound care of blisters, follows w/ wound clinic Qualifiers: Laterality: left Site of cellulitis: extremity Site of cellulitis of extremity: lower extremity Qualified Code(s): L03.116 - Cellulitis of left lower limb (2) Leukocytosis: 2/2 infection Continue to monitor Qualifiers: Leukocytosis type: unspecified Qualified Code(s): D72.829 - Elevated white blood cell count, unspecified (3) Acute exacerbation of CHF (congestive heart failure): Continuue bumex Strict I&Os Daily weights (4) Hypokalemia: Continue supplementation (5) Hypomagnesemia: Resolved (6) Intellectual disability: Plan to d/c back to senior care on oral abx if she improves Plan DVT ppx: Heparin Code Status: Full Code Attestations Medical Necessity Statement*: Patient requires ongoing hospitalization for Bumex, antibiotics, and supportive care. Coding Level of Care Code Acute Code for [facility] Fw Diagnoses Cellulitis L03.116 Laterality: left Site of cellulitis: extremity Site of cellulitis of extremity: lower extremity Leukocytosis D72.829 Leukocytosis type: unspecified Acute exacerbation of CHF (congestive heart failure) I50.9 Hypokalemia E87.6 Hypomagnesemia E83.42 Intellectual disability F79
[2022-08-26] MEDS: doxycycline 100 mg Tablet PO (17:58)
[2022-08-26] MEDS: ondansetron 2 mg/ML SDV 2 mL 4 MG IVP (18:40)
[2022-08-27 04:00] VITALS: BP 113/70; PULSE 97; RESP 18; TEMP 37.3; O2SAT 96
[2022-08-27] MEDS: oxybutynin 5 mg Tablet PO (05:20)
[2022-08-27] MEDS: potassium chloride ER 20 mEq Tablet PO (05:20)
[2022-08-27 06:20] LABS: Basophils # 0.1 10^3/uL (0.0-0.1); Basophils % 0.5 %; Eosinophils # 0.6 10^3/uL (0.0-0.8); Hematocrit 34.6 % (37.0-47.0); Hemoglobin 11.3 g/dL (11.5-15.3); Lymphocytes # 2.6 10^3/uL (0.8-4.8); Lymphocytes % 20.8 %; Mean Corpuscular HGB Conc 32.7 g/dL (30.0-36.0); Mean Corpuscular Hemoglobin 29.6 pg (28.0-34.0); Mean Corpuscular Volume 90.6 fl (81-99); Mean Platelet Volume 9.3 fL (7.4-10.4); Monocytes # 0.7 10^3/uL (0.2-0.9); Monocytes % 5.7 %; Neutrophils # 8.31 10^3/uL (1.8-7.7); Neutrophils % 65.2 %; Nucleated Red Blood Cells % 0 %; Platelet Count 267 10^3/cmm (130-400); Red Blood Count 3.82 10^6/uL (4.1-5.3); Red Cell Distribution Width 13.5 % (12.1-15.1); White Blood Count 12.7 10^3/uL (4.0-10.0)
[2022-08-27 06:39] LABS: Albumin Level 2.8 g/dL (3.5-5.2); Anion Gap 11.5 (5-19); Blood Urea Nitrogen 14 mg/dL (6-20); Calcium 9.1 mg/dL (8.5-10.5); Carbon Dioxide 25 mmol/L (22-29); Chloride 107 mmol/L (98-107); Glomerular Filtration Rate 172.6 mL/min (90-130); Glucose 91 mg/dL (65-115); Magnesium 1.9 mg/dL (1.7-2.3); Phosphorus 2.8 mg/dL (2.5-4.5); Potassium 3.5 mmol/L (3.5-5.1); Sodium 140 mmol/L (136-145)
[2022-08-27] MEDS: cefdinir 300 MG CAPSULE PO (07:33)
[2022-08-27 08:00] VITALS: BP 114/55; PULSE 101; RESP 20; TEMP 36.4; O2SAT 97
[2022-08-27] MEDS: nystatin cream 30 gm 1 APPLIC TOPICAL (08:34)
[2022-08-27] MEDS: bumetanide 1 mg Tablet PO (08:35)
[2022-08-27] MEDS: doxycycline 100 mg Tablet PO ×2 (08:35→14:10)
[2022-08-27] MEDS: montelukast sodium 10 mg Tablet PO (08:35)
[2022-08-27] MEDS: heparin 5,000 unit/mL INJ 1 mL 5000 UNIT SUBCUT (08:35)
[2022-08-27 09:01] VITALS: PULSE 91; RESP 18; O2SAT 96
--- NOTE | 2022-08-27 10:44 | P.DS_ITS ---
Discharge Providers Date of Admission: 08/21/22 20:23 Date of Discharge: August 27, 2022 Attending Provider at Admission: Therese Thompson MD Attending Provider at Discharge: Matt Washington MD Primary Care Provider: Shwetha Thomas MD Diagnoses at Discharge Discharge Diagnosis (1) Cellulitis: Status: Acute Qualifiers: Laterality: left Site of cellulitis: extremity Site of cellulitis of extremity: lower extremity Qualified Code(s): L03.116 - Cellulitis of left lower limb (2) Leukocytosis: Status: Acute Qualifiers: Leukocytosis type: unspecified Qualified Code(s): D72.829 - Elevated white blood cell count, unspecified (3) Acute exacerbation of CHF (congestive heart failure): Status: Acute (4) Hypokalemia: Status: Acute (5) Hypomagnesemia: Status: Acute (6) Intellectual disability: Status: Acute Reason for Visit Reason for Visit: abnormal labs Hospital Course Hospital Course 47-year-old female who was admitted from wound care clinic for sepsis related to cellulitis, blood cultures remain negative, patient only experienced couple of episode of febrile events in the hospital otherwise remained stable on broad- spectrum antibiotics, her left leg cellulitis was standing all the way up to her thigh with blisters which got worse around her knee, her blisters are nonpurulent, nontender, they were related to leg edema causing skin thinning, no signs of DVT on venous Doppler, patient follows up with wound care clinic, she received PICC line because her IV access was very poor, she has remained afebrile 72 hours before her discharge from the hospital, she will be discharged with levofloxacin and doxycycline 10-day course, she will follow-up regularly with her wound care clinic. Her previous left leg wound culture showed polymicrobial infection with MRSA Klebsiella and Pseudomonas Physical Exam Narrative: Left leg cellulitis regressing, redness is fading away Erythematous rash with scab formation No active signs of worsening of cellulitis or purulent drainage Open wound left lateral border of her lower leg covered with dressing Patient is awake and alert Currently on room air Pleasant and cooperative Discharge Data Studies Completed and Pending Completed Studies During Hospitalization Category Date Time Status CT lower leg LT w con [id number] Stat Cat Scan 08/21/22 21:08 Completed XR chest 1V portable [id number] Routine Exams 08/21/22 23:07 Completed XR chest 1V portable [id number] Routine Exams 08/22/22 15:23 Completed CV. echo wo/w contrast [id number] Routine Ultrasound 08/23/22 10:29 Completed Radiology Impressions Lower Extremity CT 08/21/22 21:08 IMPRESSION: 1. Soft tissue swelling involving the entire leg with [id number] distally and minimal proximally most consistent with cellulitis. 2. No obvious soft tissue ulceration, soft tissue emphysema, osteomyelitis or abscess. Chest X-Ray 08/22/22 15:23 Impression: Satisfactory position of right PICC line. Laboratory Results WBC 12.7 10^3/uL (4.0-10.0) H 08/27/22 05:55 RBC 3.82 10^6/uL (4.1-5.3) L 08/27/22 05:55 Hgb 11.3 g/dL (11.5-15.3) L 08/27/22 05:55 Hct 34.6 % (37.0-47.0) L 08/27/22 05:55 MCV 90.6 fl (81-99) 08/27/22 05:55 MCH 29.6 pg (28.0-34.0) 08/27/22 05:55 MCHC 32.7 g/dL (30.0-36.0) 08/27/22 05:55 RDW 13.5 % (12.1-15.1) 08/27/22 05:55 Plt Count 267 10^3/cmm (130-400) 08/27/22 05:55 MPV 9.3 fL (7.4-10.4) 08/27/22 05:55 Neut % (Auto) 65.2 % 08/27/22 05:55 Lymph % (Auto) 20.8 % 08/27/22 05:55 [place] % (Auto) 5.7 % 08/27/22 05:55 Eos % (Auto) 5.0 % 08/27/22 05:55 Baso % (Auto) 0.5 % 08/27/22 05:55 Neut # (Auto) 8.31 10^3/uL (1.8-7.7) H 08/27/22 05:55 Lymph # (Auto) 2.6 10^3/uL (0.8-4.8) 08/27/22 05:55 [place] # (Auto) 0.7 10^3/uL (0.2-0.9) 08/27/22 05:55 Eos # (Auto) 0.6 10^3/uL (0.0-0.8) 08/27/22 05:55 Baso # (Auto) 0.1 10^3/uL (0.0-0.1) 08/27/22 05:55 Nucleated RBC % (auto) 0 % 08/27/22 05:55 Nucleated RBCs # 0.0 /100WBC 08/27/22 05:55 ESR 43 mm/hr (0-15) H 08/21/22 21:36 D-Dimer 2.39 ug/mIFEU (0-0.59) H 08/23/22 08:50 Sodium 140 mmol/L (136-145) 08/27/22 05:55 Potassium 3.5 mmol/L (3.5-5.1) 08/27/22 05:55 Chloride 107 mmol/L (98-107) 08/27/22 05:55 Carbon Dioxide 25 mmol/L (22-29) 08/27/22 05:55 Anion Gap 11.5 (5-19) 08/27/22 05:55 BUN 14 mg/dL (6-20) 08/27/22 05:55 Creatinine 0.4 mg/dL (0.5-0.9) L 08/27/22 05:55 GFR Calculation 172.6 mL/min (90-130) H 08/27/22 05:55 Glucose 91 mg/dL (65-115) 08/27/22 05:55 POC Glucose 180 mg/dL (70-110) H 08/22/22 20:24 Calculated Osmolality 281 mOsm/kg (285-295) L 08/24/22 06:50 Lactic Acid 2.5 mmol/L (0.5-2.2) H 08/21/22 21:36 Lactic Acid (Sepsis) 1.3 mmol/L (0.5-2.2) 08/22/22 01:18 Calcium 9.1 mg/dL (8.5-10.5) 08/27/22 05:55 Phosphorus 2.8 mg/dL (2.5-4.5) 08/27/22 05:55 Magnesium 1.9 mg/dL (1.7-2.3) 08/27/22 05:55 Total Bilirubin 0.3 mg/dL (0.15-1.2) 08/22/22 01:18 AST 14 U/L (0-32) 08/22/22 01:18 ALT 13 U/L (0-33) 08/22/22 01:18 Alkaline Phosphatase 77 U/L (35-105) 08/22/22 01:18 C-Reactive Protein 313.0 mg/L (0.0-4.9) H 08/21/22 21:36 NT-Pro-B Natriuret Pep 82 pg/mL (0-125) 08/24/22 06:50 Total Protein 6.1 g/dL (6.6-8.7) L 08/22/22 01:18 Albumin 2.8 g/dL (3.5-5.2) L 08/27/22 05:55 Globulin 3.1 g/dL (1.3-4.6) 08/22/22 01:18 Procalcitonin 0.56 ng/mL (0-0.5) H 08/21/22 21:36 TSH 3.38 uIU/mL (0.27-4.20) 08/21/22 21:36 Vancomycin Trough 9.2 ug/mL (10-15) L 08/26/22 09:00 MRSA (PCR) Cancelled 08/25/22 11:30 Vitals Last Vital Signs Temp 97.5 F L 08/27/22 08:00 Pulse 91 08/27/22 09:01 Resp 18 08/27/22 09:01 BP 114/55 08/27/22 08:00 Pulse Ox 96 08/27/22 09:01 O2 Del Method Room Air 08/27/22 09:01 O2 Flow Rate 1 08/24/22 08:45 Discharge Plan Discharge Patient Disposition: Xfer SNF Condition: Stable Prescriptions: New doxycycline hyclate 100 mg tablet 100 mg PO BID 10 Days Qty: 20 0RF levofloxacin 750 mg tablet 750 mg PO DAILY 10 Days Qty: 10 0RF Continued montelukast [Singulair] 10 mg tablet 10 mg PO DAILY@20 ibuprofen 800 mg tablet 800 mg PO TID@06,12,20 fluticasone propion-salmeterol [Advair Diskus] 250-50 mcg/dose blister with device 1 inh inhalation BID@06,20 albuterol sulfate [Ventolin HFA] 90 mcg/actuation HFA aerosol inhaler 1 puff inhalation BID@06,20 desogestrel-ethinyl estradiol [Isibloom] 0.15-0.03 mg tablet 1 tab PO DAILY@06 lorazepam 0.5 mg tablet 0.5 mg PO QID Rx Instructions: @06:00,12:00,16:00,20:00 oxybutynin chloride 5 mg tablet 5 mg PO BID@06,20 A and D Ointment See Rx Instructions .ROUTE .COMPLEX Rx Instructions: Apply topically to the irritated skin around the wound daily@08:00 mupirocin 2 % ointment See Rx Instructions .ROUTE .COMPLEX Rx Instructions: apply topically to leg wounds bid@06,20 albuterol sulfate 2.5 mg /3 mL (0.083 %) Solution For Nebulization 2.5 mg INHALATION QID PRN (Reason: Wheezing) Pain Relief (acetaminophen) 500 mg Tablet 1,000 mg PO Q6H PRN (Reason: Pain) Banophen 25 mg Tablet 25 mg PO Q6H PRN (Reason: Itching) Vitamin C 500 mg Tablet,Chewable 500 mg PO DAILY PRN (Reason: unknown) Colace 100 mg Capsule 100 mg PO DAILY PRN (Reason: Constipation) hydroxyzine HCl 25 mg Tablet 25 mg PO Q6H PRN (Reason: Itching) Santyl 250 unit/gram ointment 1 applic TOPICAL DAILY Rx Instructions: apply to wound [place] Nasal 0.65 % Aerosol,[place] See Rx Instructions .ROUTE .COMPLEX Rx Instructions: administer into each nostril as directed as needed for dryness (may keep at bedside) triamcinolone acetonide 0.1 % cream 1 applic topical DAILY@08 nystatin 100,000 unit/gram cream 1 applic topical DAILY@08 potassium chloride 20 mEq tablet extended release 20 meq PO DAILY@06 Qty: 30 0RF Changed Lasix 40 mg Tablet 40 mg PO DAILY Qty: 60 0RF Discontinued hydrochlorothiazide 25 mg tablet 25 mg PO DAILY@06 furosemide [Lasix] 40 mg tablet 40 mg PO DAILY@06 clindamycin HCl 300 mg capsule 300 mg PO TID Qty: 21 0RF Rx Instructions: medication not on mar from [facility] on 08/22/22-rx written and filled 08/21/22 Discharge Orders: Discharge Order (Routine); Ordered 08/27/22 Ordered By: Matt Washington Referrals: Shwetha Thomas MD [Primary Care Provider] - WOUND CARE CLINIC, [Staff Physician] - 4-7 days Patient Instructions: Opioid Safety Discharge Attestations Time Spent in Discharge Care*: greater than 30 min Quality Metrics Clinical Quality Measures [ No reported AMI, CVA or VTE this stay] Coding Level of Care Code Acute Code for Chg Fwd Diagnoses Cellulitis L03.116 Laterality: left Site of cellulitis: extremity Site of cellulitis of extremity: lower extremity Leukocytosis D72.829 Leukocytosis type: unspecified Acute exacerbation of CHF (congestive heart failure) I50.9 Hypokalemia E87.6 Hypomagnesemia E83.42 Intellectual disability F79
[2022-08-27 12:00] VITALS: BP 145/77; PULSE 88; RESP 20; TEMP 36.6; O2SAT 99
[2022-08-27] MEDS: ondansetron 4 MG Tablet PO (13:17)
[2022-08-27 14:33] VITALS: BP 145/77; PULSE 88; RESP 20; TEMP 36.6; O2SAT 99
== END 2022-08-27 14:35 | disposition home or self-care (01) | DRG 602 ==
LOC: ER 20:23 → MEDSURG 20:46
PROVIDERS: Emergency Medicine; Internal Medicine; Admitting Provider Internal Medicine; Emergency Provider Emergency Medicine; PCP Family Medicine; Visit Provider Internal Medicine
DX: L03.116 Cellulitis of left lower limb (principal); I50.31 Acute diastolic (congestive) heart failure; Z79.51 Long term (current) use of inhaled steroids; J45.909 Unspecified asthma, uncomplicated; L70.5 Acne excoriee; Z88.0 Allergy status to penicillin; E87.6 Hypokalemia; E83.42 Hypomagnesemia; F79 Unspecified intellectual disabilities
CPT/HCPCS: 36415; 36416; 36569; 36592; 71045; 73701; 80048; 80053; 80069; 80202; 82962; 83605; 83735; 83880; 84145; 84443; 85025; 85378; 85651; 86140; 87040; 93971; 96372; 96374; 97597; 97598; 99285; C8929; J0696; J1644; J1956; J2270; J2405; J3370; J3475; J3480; J3490; J7030; J7050; Q0162; Q9956; Q9967

== ENCOUNTER → 2022-08-30 08:53 | Outpatient (BNVA) | payer MEDICARE, MEDICAID, SELFPAY | PROVIDERS: PCP Family Medicine; Visit Provider Nurse Practitioner Family | DX: I96 Gangrene, not elsewhere classified (principal); L97.822 Non-pressure chronic ulcer of other part of left lower leg with fat layer exposed | CPT/HCPCS: 11042; A6212 ==

== ENCOUNTER → 2022-09-06 08:59 | Outpatient (BNVA) | payer MEDICARE, MEDICAID, SELFPAY | PROVIDERS: PCP Family Medicine; Visit Provider Nurse Practitioner Family | DX: I96 Gangrene, not elsewhere classified (principal); L97.822 Non-pressure chronic ulcer of other part of left lower leg with fat layer exposed; L24.9 Irritant contact dermatitis, unspecified cause; L57.8 Other skin changes due to chronic exposure to nonionizing radiation; Z87.2 Personal history of diseases of the skin and subcutaneous tissue; D22.5 Melanocytic nevi of trunk | CPT/HCPCS: 97597; 99213 ==

== ENCOUNTER → 2022-09-13 09:08 | Outpatient (BNVA) | payer MEDICARE, MEDICAID, SELFPAY | PROVIDERS: PCP Family Medicine; Visit Provider Nurse Practitioner Family | DX: I96 Gangrene, not elsewhere classified (principal); L97.822 Non-pressure chronic ulcer of other part of left lower leg with fat layer exposed | CPT/HCPCS: 97597 ==

== ENCOUNTER → 2022-09-20 09:09 | Outpatient (BNVA) | payer MEDICARE, MEDICAID, SELFPAY | PROVIDERS: PCP Family Medicine; Visit Provider Nurse Practitioner Family | DX: I96 Gangrene, not elsewhere classified (principal); L97.822 Non-pressure chronic ulcer of other part of left lower leg with fat layer exposed; Z09 Encounter for follow-up examination after completed treatment for conditions other than malignant neoplasm | CPT/HCPCS: 97597; A6210 ==

== ENCOUNTER 2022-09-24 09:41 | Outpatient (CLI) | payer MEDICARE, MEDICAID, SELFPAY ==
--- NOTE | 2022-09-24 09:48 | MM_ITS ---
WS: [id number] BILATERAL SCREENING DIGITAL TOMOSYNTHESIS MAMMOGRAM WITH CAD HISTORY: SCREENING COMPARISON: 09/22/2021 and 06/20/2020 Bilateral CC and MLO views with tomosynthesis and synthetic mammography submitted. Computer aided det ection analyzed. Breast composition: There are scattered areas of fibroglandular density. No suspicious masses, microc alcifications or architectural distortion. Benign calcifications in each breast. MM/[place] [id number] IMPRESSION: BI-RADS: 2-Benign FOLLOW UP: 1 Year Follow-up
== END 2022-09-24 09:42 | disposition home or self-care (01) ==
PROVIDERS: PCP Family Medicine; Visit Provider Family Medicine
DX: Z12.31 Encounter for screening mammogram for malignant neoplasm of breast (principal)
CPT/HCPCS: 77063; 77067

== ENCOUNTER → 2022-09-27 09:12 | Outpatient (BNVA) | payer MEDICARE, MEDICAID, SELFPAY | PROVIDERS: PCP Family Medicine; Visit Provider Nurse Practitioner Family | DX: I96 Gangrene, not elsewhere classified (principal); L97.822 Non-pressure chronic ulcer of other part of left lower leg with fat layer exposed | CPT/HCPCS: 97597; A6210 ==

== ENCOUNTER 2022-10-06 07:03 | Inpatient (IN) | payer MEDICARE, MEDICAID, SELFPAY ==
[2022-10-06] VITALS (16 sets, daily range): BP systolic 98–156; BP diastolic 77–113; PULSE 81–115; RESP 16–18; TEMP 36.4–37.7; O2SAT 95–100; BMI 48.8
--- NOTE | 2022-10-06 07:30 | USR_ITS ---
PROCEDURE INFORMATION: Exam: US Duplex Left Lower Extremity Veins, Limited Exam date and time: 10/06/2022 8:05 AM Age: 47 years old Clinical indication: Pain; Leg, lower; Left; Additional info: Swelling pain TECHNIQUE: Imaging protocol: Real-time duplex ultrasound of the left extremity with 2-D cedeno scale, color Doppler flow and spectral waveform analysis including responses to compression and other maneuvers (when performed) with image documentation. Limited exam focused on the left lower extremity veins. COMPARISON: US CV venous duplex [facility] [id number] 08/21/2022 4:50 PM FINDINGS: Evaluated veins include the left common femoral, proximal profunda femoral, proximal/mid/distal superficial femoral, popliteal, posterior tibial, peroneal, and proximal greater saphenous veins. No visible clot in the included veins. The included veins appear normally compressible. Duplex Doppler evaluation demonstrates flow in the evaluated veins. US/CV venous duplex [facility] [id number] IMPRESSION: No evidence of acute left lower extremity DVT.
[2022-10-06 07:53] LABS: Basophils % 0.3 %; Eosinophils % 0.3 %; Hematocrit 38.9 % (37.0-47.0); Hemoglobin 12.5 g/dL (11.5-15.3); Lymphocytes # 1.3 10^3/uL (0.8-4.8); Lymphocytes % 9.6 %; Mean Corpuscular HGB Conc 32.1 g/dL (30.0-36.0); Mean Corpuscular Hemoglobin 29.1 pg (28.0-34.0); Mean Corpuscular Volume 90.7 fl (81-99); Mean Platelet Volume 10.4 fL (7.4-10.4); Monocytes # 0.4 10^3/uL (0.2-0.9); Monocytes % 3.2 %; Neutrophils # 11.69 10^3/uL (1.8-7.7); Neutrophils % 85.9 %; Nucleated Red Blood Cells % 0 %; Platelet Count 334 10^3/cmm (130-400); Red Blood Count 4.29 10^6/uL (4.1-5.3); White Blood Count 13.6 10^3/uL (4.0-10.0)
--- NOTE | 2022-10-06 08:03 | W.ED.EXTPRO ---
HPI - Extremity Problem General: Chief complaint: Extremity Injury, Lower Stated complaint: LEFT LEG PAIN AND SWELLING Time Seen by Provider: 10/06/22 07:09 Source: patient and family Mode of arrival: EMS History of Present Illness: 47-year-old female resident of group home with some intellectual disability presents emergency room with complaints of swelling and discomfort on her left leg. She usually wears a compression stocking she has chronic lower extremity ulcers which are in the process of healing she has been being seen at the wound clinic. She has some redness proximal to her compression stocking. She is complaining of increased pain and swelling in the left lower leg no fever sweats or chills MD Complaint: extremity pain and extremity swelling Onset (ago): hour(s) Pain Consistency: constant Location: left and lower extremity Quality: aching Radiation: none Relieving factors: nothing Exacerbating factors: palpation Associated symptoms: Reports fever(s); Deny arthralgias, chest pain, myalgias, rash or short of breath Review of Systems Const: Reports: fever(s), chills, fatigue and malaise Card: Denies: chest pain or palpitations Resp: Denies: dyspnea, productive cough or non-productive cough GI: Denies: abdominal pain, nausea or vomiting : Denies: flank pain, difficulty voiding, dysuria, urinary frequency or urinary urgency Musc: Reports: extremity pain and extremity swelling Skin/Breast: Denies: rash or pruritus PFSH ED PFSH: Medical History Acute exacerbation of CHF (congestive heart failure) Cellulitis Hypokalemia Hypomagnesemia Intellectual disability Leukocytosis Sepsis Surgical History No history of previous surgery Family History Mother Hypertension Grandmother Clotting disorder paternal Denies family history of Colon cancer Ovarian cancer Diabetes Heart disease Hyperlipidemia Breast cancer Anesthesia complication Bleeding disorder Uterine cancer Thyroid condition Stroke Social History Smoking and tobacco status: never smoked Alcohol intake: never Substance/Drug Use: never Physical Exam Const: GENERAL APPEARANCE: cooperative ORIENTATION/CONSCIOUSNESS: Yes awake HENMT: COMMON NORMALS: normocephalic, atraumatic and hearing grossly normal bilaterally HEAD & SCALP: normocephalic and atraumatic Resp: COMMON NORMALS: normal respiratory effort, No retractions, No use of accessory muscles and clear to auscultation bilaterally AUSCULTATION: clear to auscultation bilaterally Cardio: COMMON NORMALS: regular rate, regular rhythm and No murmurs present (Cardio) RATE: regular rate RHYTHM: regular rhythm GI: COMMON NORMALS: Soft to palpation and No hepatosplenomegaly present AUSCULTATION: Yes normoactive bowel sounds PALPATION: Yes Soft to palpation, No Tenderness to palpation present (GI), No Guarding due to palpation present (GI) and Yes No hepatosplenomegaly present Extremity: OTHER: Notable swelling in the left lower leg there is petechial-like rash proximal to the mechanical line where the compression sock was. Is warm to the touch and notably edematous. No sign of abscess no drainage no open wounds Skin: COMMON NORMALS: no rashes or lesions noted GENERAL SKIN EXAM: no rashes or lesions noted Course Vital Signs: Vital signs: Vital Signs Temperature 98.1 F 10/06/22 07:11 Pulse Rate 89 10/06/22 13:22 Respiratory Rate 16 10/06/22 13:22 Blood Pressure 108/80 10/06/22 13:22 Pulse Oximetry 99 10/06/22 12:35 Oxygen Delivery Me thod Room Air 10/06/22 07:11 MDM - Extremity (Nontraumatic) Medical Decision Making Leukocytosis mildly elevated lactate. CRP significantly elevated. Patient given IV fluids, antibiotics and culture started. We will admit discussed with hospitalist orders written Lab Data 10/06/22 06:47 10/06/22 06:47 Radiology Impressions Venous Duplex 10/06/22 07:30 IMPRESSION: No evidence of acute left lower extremity DVT. Laboratory Results WBC 13.6 10^3/uL (4.0-10.0) H 10/06/22 06:47 RBC 4.29 10^6/uL (4.1-5.3) 10/06/22 06:47 Hgb 12.5 g/dL (11.5-15.3) 10/06/22 06:47 Hct 38.9 % (37.0-47.0) 10/06/22 06:47 MCV 90.7 fl (81-99) 10/06/22 06:47 MCH 29.1 pg (28.0-34.0) 10/06/22 06:47 MCHC 32.1 g/dL (30.0-36.0) 10/06/22 06:47 RDW 14.0 % (12.1-15.1) 10/06/22 06:47 Plt Count 334 10^3/cmm (130-400) 10/06/22 06:47 MPV 10.4 fL (7.4-10.4) 10/06/22 06:47 Neut % (Auto) 85.9 % 10/06/22 06:47 Lymph % (Auto) 9.6 % 10/06/22 06:47 [place] % (Auto) 3.2 % 10/06/22 06:47 Eos % (Auto) 0.3 % 10/06/22 06:47 Baso % (Auto) 0.3 % 10/06/22 06:47 Neut # (Auto) 11.69 10^3/uL (1.8-7.7) H 10/06/22 06:47 Lymph # (Auto) 1.3 10^3/uL (0.8-4.8) 10/06/22 06:47 [place] # (Auto) 0.4 10^3/uL (0.2-0.9) 10/06/22 06:47 Eos # (Auto) 0.0 10^3/uL (0.0-0.8) 10/06/22 06:47 Baso # (Auto) 0.0 10^3/uL (0.0-0.1) 10/06/22 06:47 Nucleated RBC % (auto) 0 % 10/06/22 06:47 Nucleated RBCs # 0.0 /100WBC 10/06/22 06:47 Sodium 138 mmol/L (136-145) 10/06/22 06:47 Potassium 3.1 mmol/L (3.5-5.1) L 10/06/22 06:47 Chloride 101 mmol/L (98-107) 10/06/22 06:47 Carbon Dioxide 23 mmol/L (22-29) 10/06/22 06:47 Anion Gap 17.1 (5-19) 10/06/22 06:47 BUN 14 mg/dL (6-20) 10/06/22 06:47 Creatinine 0.6 mg/dL (0.5-0.9) 10/06/22 06:47 GFR Calculation 108.1 mL/min (90-130) 10/06/22 06:47 Glucose 140 mg/dL (65-115) H 10/06/22 06:47 Calculated Osmolality 289 mOsm/kg (285-295) 10/06/22 06:47 Lactic Acid 2.9 mmol/L (0.5-2.2) H 10/06/22 08:00 Calcium 9.6 mg/dL (8.5-10.5) 10/06/22 06:47 Total Bilirubin 0.3 mg/dL (0.15-1.2) 10/06/22 06:47 AST 16 U/L (0-32) 10/06/22 06:47 ALT 14 U/L (0-33) 10/06/22 06:47 Alkaline Phosphatase 91 U/L (35-105) 10/06/22 06:47 C-Reactive Protein 271.9 mg/L (0.0-4.9) H 10/06/22 06:47 Total Protein 7.3 g/dL (6.6-8.7) 10/06/22 06:47 Albumin 3.6 g/dL (3.5-5.2) 10/06/22 06:47 Globulin 3.7 g/dL (1.3-4.6) 07 06:47 Urine Color Straw (Yellow) 10/06/22 09:52 Urine Appearance Clear (CLEAR) 10/06/22 09:52 Urine pH 6.5 (5-7) 10/06/22 09:52 Ur Specific [place] 1.000 (1.005-1.030) L 10/06/22 09:52 Urine Protein Neg (Negative) 10/06/22 09:52 Urine Glucose (UA) Norm (Normal) 10/06/22 09:52 Urine Ketones Negative (Negative) 10/06/22 09:52 Urine Blood Neg (Negative) 10/06/22 09:52 Urine Nitrate Negative (Negative) 10/06/22 09:52 Urine Bilirubin Neg (Negative) 10/06/22 09:52 Urine Urobilinogen Norm mg/dL (Negative) 10/06/22 09:52 Ur Leukocyte Esterase 2+ (Negative) H 10/06/22 09:52 Urine RBC None /hpf (0-2) 10/06/22 09:52 Urine WBC 15-25 /hpf (0-5) H 10/06/22 09:52 Ur Squamous Epith Cells 5-10 /hpf (0-5) H 10/06/22 09:52 Amorphous Sediment Not Reportable 10/06/22 09:52 Urine Bacteria 1+ /hpf (NONE) H 10/06/22 09:52 Discharge Plan Discharge Patient Disposition: Admitted As Inpatient Admit Provider: Duc Stratton Clinical Impression: Cellulitis Condition: Stable Coding Level of Care Code ED Boiler Or Engine Operator for Frank Smith
[2022-10-06 08:14] LABS: Alanine Aminotransferase 14 U/L (0-33); Albumin Level 3.6 g/dL (3.5-5.2); Alkaline Phosphatase 91 U/L (35-105); Aspartate Amino Transferase 16 U/L (0-32); Blood Urea Nitrogen 14 mg/dL (6-20); C Reactive Protein 271.9 mg/L (0.0-4.9); Calcium 9.6 mg/dL (8.5-10.5); Carbon Dioxide 23 mmol/L (22-29); Chloride 101 mmol/L (98-107); Globulin 3.7 g/dL (1.3-4.6); Glomerular Filtration Rate 108.1 mL/min (90-130); Glucose 140 mg/dL (65-115); Osmolality Calculated 289 mOsm/kg (285-295); Sodium 138 mmol/L (136-145); Total Bilirubin 0.3 mg/dL (0.15-1.2); Total Protein 7.3 g/dL (6.6-8.7)
[2022-10-06 08:17] LABS: Anion Gap 17.1 (5-19); Potassium 3.1 mmol/L (3.5-5.1)
[2022-10-06] MEDS: HYDROcodone-acetaminophen 5-325 mg Tablet 1 TAB PO ×2 (08:18→18:53)
[2022-10-06 08:53] LABS: Lactic Sepsis W/Reflex 2.9 mmol/L (0.5-2.2)
[2022-10-06] MEDS: vancomycin 1,000 MG in sodium chloride 0.9% 250 ML 250 MG IV (09:26)
[2022-10-06 09:36] LABS: Reflex Lactate Order REFLEX LACTIC ORDERD
[2022-10-06 10:41] LABS: Add Urine Microscopic? YES; Bilirubin Urine Neg (Negative); Blood Urine Neg (Negative); Glucose Urine UA Norm (Normal); Ketones Urine Negative (Negative); Leukocyte Esterase Urine 2+ (Negative); Nitrate Urine Negative (Negative); Protein Urine Neg (Negative); Urine Appearance Clear (CLEAR); Urine Color Straw (Yellow); Urobilinogen Urine Norm (Negative); pH Urine 6.5 (5-7)
[2022-10-06 10:42] LABS: Add Urine Culture? Yes; Bacteria Urine 1+ /hpf; WBC Urine 15-25 /hpf (0-5)
--- NOTE | 2022-10-06 10:46 | PC.PHAR ---
Called pts facility and requested a mar at 10:30 am
--- NOTE | 2022-10-06 12:06 | PC.PHAR ---
contacted facility for med list and spoke to jos still have not received med list as of 12:00 am
--- NOTE | 2022-10-06 14:24 | P.HP_ITS ---
Providers/Chief Complaint Admitting Physician: Duc Stratton MD Primary Care Provider: Shwetha Thomas MD Chief Complaint: LEFT LEG PAIN AND SWELLING History of Present Illness Chuyita Kilpatrick is a 47 year old female with past medical history of chronic left lower extremity ulcer came in today with chief complaint worsening left lower extremity pain, redness and swelling. She usually wears a compression stocking she has chronic lower extremity ulcers, for which she goes to wound care clinic, and appears to be healing well. Left lower extremity Doppler vein done today: Showed no DVT.Pertinent labs have shown hypokalemia, mildly elevated lactic acid, leukocytosis. She was started on vancomycin for left lower extremity cellulitis in the ER. Review of Systems General: Reports: 10 or more systems reviewed and unremarkable except in HPI and below Const: Denies: fever(s), chills, body aches, change in appetite or diaphoresis Card: Denies: palpitations, edema, swelling of feet/ankles, dyspnea on exertion, orthopnea or leg pain with exertion Resp: Denies: dyspnea, productive cough, wheezing or pain on inspiration GI: Denies: abdominal pain, nausea, vomiting, diarrhea or constipation : Denies: flank pain Musc: Denies: back pain, extremity pain or extremity swelling Neuro: Denies: headache(s), difficulty walking or confusion Medications/Allergies Home Medications Medication Instructions Recorded Confirmed Last Taken Type albuterol sulfate 90 mcg/actuation 1 puff inhalation BID@,08/05/20 10/06/22 Unknown History aerosol inhaler (Ventolin HFA) desogestrel 0.15 mg-ethinyl 1 tab PO DAILY@08/05/20 10/06/22 Unknown History estradiol 0.03 mg tablet (Isibloom) fluticasone 250 mcg-salmeterol 50 1 inh inhalation BID@08/05/20 10/06/22 Unknown History mcg/dose blistr powdr for inhalation (Advair Diskus) ibuprofen 800 mg tablet 800 mg PO TID@,,08/05/20 10/06/22 Unknown History lorazepam 0.5 mg tablet 0.5 mg PO QID 08/05/20 10/06/22 Unknown History montelukast 10 mg tablet 10 mg PO DAILY@08/05/20 10/06/22 Unknown History (Singulair) oxybutynin chloride 5 mg tablet 5 mg PO BID@06,20 08/05/20 10/06/22 Unknown History acetaminophen 500 mg tablet (Pain 1,000 mg PO Q6H PRN Pain 08/22/22 10/06/22 Unknown History Relief (acetaminophen)) albuterol sulfate 2.5 mg/3 mL 2.5 mg inhalation QID PRN Wheezing 08/22/22 10/06/22 Unknown History (0.083 %) solution for nebulization collagenase clostridium histo. 250 1 applic topical DAILY 08/22/22 10/06/22 Unknown History unit/gram topical ointment (Santyl) diphenhydramine HCl 25 mg tablet 25 mg PO Q6H PRN Itching 08/22/22 10/06/22 Unknown History (Banophen) docusate sodium 100 mg capsule 100 mg PO DAILY PRN Constipation 08/22/22 10/06/22 Unknown History (Colace) hydroxyzine HCl 25 mg tablet 25 mg PO Q6H PRN Itching 08/22/22 10/06/22 Unknown History mupirocin 2 % topical ointment See Rx Instructions .Route .COMPLEX 08/22/22 10/06/22 Unknown History nystatin 100,000 unit/gram topical 1 applic topical DAILY@08 08/22/22 10/06/22 Unknown History cream sodium chloride 0.65 % nasal spray See Rx Instructions .Route .COMPLEX 08/22/22 10/06/22 Unknown History aerosol (Deep Sea Nasal) triamcinolone acetonide 0.1 % 1 applic topical DAILY@08 08/22/22 10/06/22 Unknown History topical cream vitamin A and D See Rx Instructions .Route .COMPLEX 08/22/22 10/06/22 Unknown History furosemide 40 mg tablet (Lasix) 40 mg PO DAILY #60 tabs 08/27/22 10/06/22 Unknown Rx potassium chloride 20 mEq 20 meq PO DAILY@06 #30 tabs 08/27/22 10/06/22 Unknown Rx tablet,extended release clobetasol 0.05 % topical ointment 1 applic topical BID PRN Rash 10/06/22 10/06/22 Unknown History hydrochlorothiazide 25 mg tablet 25 mg PO DAILY 10/06/22 10/06/22 Unknown History ibuprofen 800 mg tablet 800 mg PO TID 10/06/22 10/06/22 Unknown History Allergies Allergy/AdvReac Type Severity Reaction Status Date / Time amoxicillin [From Augmentin] Allergy ALGY-Rash Verified 10/06/22 07:09 clavulanic acid Allergy ALGY-Rash Verified 10/06/22 07:09 [From Augmentin] PFSH Acute PFSH: Medical History (Updated 10/06/22 @ 19:01 by Duc Stratton MD) Acute exacerbation of CHF (congestive heart failure) Cellulitis Hypokalemia Hypomagnesemia Intellectual disability Leukocytosis Sepsis Surgical History No history of previous surgery Family History Mother Hypertension Grandmother Clotting disorder paternal Denies family history of Colon cancer Ovarian cancer Diabetes Heart disease Hyperlipidemia Breast cancer Anesthesia complication Bleeding disorder Uterine cancer Thyroid condition Stroke Social History Smoking and tobacco status: never smoked Alcohol intake: never Substance/Drug Use: never Vitals/I&O/Wt Last Vital Signs Temp 98.1 F 10/06/22 07:11 Pulse 89 10/06/22 13:22 Resp 16 10/06/22 13:22 BP 108/80 10/06/22 13:22 Pulse Ox 99 10/06/22 12:35 O2 Del Method Room Air 10/06/22 07:11 Weight last 48 hrs Weight 113.398 kg Physical Exam HENMT: COMMON NORMALS: normocephalic and atraumatic HEAD & SCALP: normoceph alic and atraumatic Resp: COMMON NORMALS: clear to auscultation bilaterally EFFORT & INSPECTION: Yes symmetric chest movement AUSCULTATION: clear to auscultation bilaterally Cardio: COMMON NORMALS: regular rate, regular rhythm, S1 normal heart sound present, S2 normal heart sound present, No gallops present (Cardio), No murmurs present (Cardio), No rub (Cardio) and Peripheral pulses 2+ throughout RATE: regular rate RHYTHM: regular rhythm HEART SOUNDS: S1 normal heart sound present and S2 normal heart sound present PERIPHERAL PULSES: Peripheral pulses 2+ throughout GI: COMMON NORMALS: Normal to inspection, nondistended, normoactive bowel sounds present, Soft to palpation, non-tender, No hepatosplenomegaly present and no masses AUSCULTATION: Yes normoactive bowel sounds PALPATION: Yes Soft to palpation and Yes No hepatosplenomegaly present RECTAL EXAM: deferred Extremity: COMMON NORMALS: no clubbing, cyanosis or edema and no pedal edema Data 10/06/22 06:47 10/06/22 06:47 Micro: Microbiology 10/06/22 08:00 Blood Culture - Preliminary Blood SPECIMEN COLLECTED 10/06/22 08:03 Blood Culture - Preliminary Blood SPECIMEN COLLECTED A&P Assessment and plan (1) Cellulitis: (2) Hypokalemia: (3) Leukocytosis: Qualifiers: Leukocytosis type: unspecified Qualified Code(s): D72.829 - Elevated white blood cell count, unspecified (4) UTI (urinary tract infection): Plan 47 year old female with past medical history of chronic left lower extremity ulcer came in today with chief complaint worsening left lower extremity pain, redness and swelling. Assessment: Left lower extremity cellulitis: CRP 271 ESR: Follow blood culture For now continue broad-spectrum antibiotic vancomycin and cefepime. We will plan to discharge on p.o. antibiotic Hypokalemia: Monitor and replace serum potassium Possible UTI: Follow urine culture Antibiotics as above Mild elevated lactic acid: Repeat lactic acid has normalized Continue IV hydration Leukocytosis: Possibly could be secondary to UTI Monitor CBC Appropriately covered with antibiotics No suspicion for sepsis Attestations Medical Necessity Statement*: Needs to be in hospital for IV antibiotics. Coding Level of Care Code Acute Code for [facility] Diagnoses Cellulitis L03.90 Hypokalemia E87.6 Leukocytosis D72.829 Leukocytosis type: unspecified UTI (urinary tract infection) N39.0
[2022-10-06] MEDS: enoxaparin 40 mg/0.4 mL Syringe SUBCUT (16:49)
[2022-10-06] MEDS: D5-NS 0.45% + KCL 20 mEq 20 MEQ/1,000 ML BAG 100 MEQ IV (16:52)
[2022-10-06] MEDS: vancomycin 1,500 MG/300 ML PIGGYBACK 200 MG IV (17:08)
[2022-10-06] MEDS: potassium chloride ER 20 mEq Tablet 40 MEQ PO (17:49)
[2022-10-06] MEDS: budesonide 0.5 mg/2 mL Neb INHALATION (19:38)
[2022-10-06] MEDS: albuterol 2.5 mg/3 mL Neb INHALATION (19:38)
[2022-10-06] MEDS: cefepime 1,000 MG in sodium chloride 0.9% (plus) 50 ML 100 MG IV (21:00)
[2022-10-07] VITALS (14 sets, daily range): BP systolic 106–137; BP diastolic 69–82; PULSE 72–107; RESP 16–19; TEMP 36.5–37.6; O2SAT 92–100
[2022-10-07] MEDS: vancomycin 1,500 MG/300 ML PIGGYBACK 200 MG IV ×2 (03:37→17:00)
[2022-10-07] MEDS: D5-NS 0.45% + KCL 20 mEq 20 MEQ/1,000 ML BAG 100 MEQ IV (03:37)
[2022-10-07 05:58] LABS: Basophils % 0.2 %; Eosinophils # 0.1 10^3/uL (0.0-0.8); Eosinophils % 0.7 %; Hemoglobin 10.5 g/dL (11.5-15.3); Lymphocytes # 1.9 10^3/uL (0.8-4.8); Lymphocytes % 17.7 %; Mean Corpuscular HGB Conc 31.8 g/dL (30.0-36.0); Mean Corpuscular Hemoglobin 29.3 pg (28.0-34.0); Mean Corpuscular Volume 92.2 fl (81-99); Monocytes # 0.5 10^3/uL (0.2-0.9); Neutrophils # 8.15 10^3/uL (1.8-7.7); Neutrophils % 75.8 %; Nucleated Red Blood Cells % 0 %; Platelet Count 290 10^3/cmm (130-400); Red Blood Count 3.58 10^6/uL (4.1-5.3); Red Cell Distribution Width 13.8 % (12.1-15.1); White Blood Count 10.8 10^3/uL (4.0-10.0)
[2022-10-07 06:17] LABS: Erythrocyte Sedimentation Rate 90 mm/hr (0-15)
[2022-10-07 06:27] LABS: Anion Gap 11.4 (5-19); Blood Urea Nitrogen 8 mg/dL (6-20); Calcium 8.6 mg/dL (8.5-10.5); Carbon Dioxide 23 mmol/L (22-29); Chloride 101 mmol/L (98-107); Glomerular Filtration Rate 133.4 mL/min (90-130); Glucose 117 mg/dL (65-115); Osmolality Calculated 273 mOsm/kg (285-295); Potassium 3.4 mmol/L (3.5-5.1); Sodium 132 mmol/L (136-145)
[2022-10-07] MEDS: albuterol 2.5 mg/3 mL Neb INHALATION ×4 (07:58→21:02)
[2022-10-07] MEDS: budesonide 0.5 mg/2 mL Neb INHALATION ×2 (07:58→21:02)
[2022-10-07] MEDS: cefepime 1,000 MG in sodium chloride 0.9% (plus) 50 ML 100 MG IV ×2 (08:29→20:13)
[2022-10-07] MEDS: HYDROcodone-acetaminophen 5-325 mg Tablet 1 TAB PO ×2 (08:29→17:00)
[2022-10-07] MEDS: potassium chloride ER 20 mEq Tablet 40 MEQ PO (11:57)
--- NOTE | 2022-10-07 15:35 | PM.PN ---
Subjective Subjective: Left lower extremity redness improving, denied any significant pain. Medications: Medication Review Details: Generic Name Dose Route Start Last Admin Trade Name Freq PRN Reason Stop Dose Admin Hydrocodone Bitart /Acetaminophen 1 tab 10/06/22 14:18 10/07/22 08:29 Hydrocodone-Acet aminophen 5-325 Mg Tablet PO 1 tab Q4H PRN Administration MODERATE TO SEVER E PAIN Albuterol Sulfate 2.5 mg 10/06/22 16:00 10/07/22 10:59 Albuterol 2.5 Mg /3 Ml Neb INHALATION 2.5 mg QID.RESPIRATORY S CH Administration Budesonide 0.5 mg 10/06/22 20:00 10/07/22 07:58 Budesonide 0.5 M g/2 Ml Neb INHALATION 0.5 mg BID.RESPIRATORY S CH Administration Enoxaparin Sodium 40 mg 10/06/22 15:00 10/06/22 16:49 Enoxaparin 40 Mg /0.4 Ml Syringe SUBCUT 40 mg Q24H WALKER Administration Cefepime HCl 1,000 mg/ Sodium 50 mls @ 100 mls/ hr 10/06/22 14:45 10/07/22 09:02 Chloride IV Infused Q12H WALKER Infusion Protocol Vancomycin/PEG/NAD A/Lysine/Water 1,500 mg in 300 m ls @ 200 mls/hr 10/06/22 15:00 10/07/22 05:09 Vancocin IV Infused Q12H WALKER Infusion Vitals/I&O/Wt Last Vital Signs Temp 97.7 F 10/07/22 11:37 Pulse 95 10/07/22 11:37 Resp 18 10/07/22 11:37 BP 129/78 10/07/22 11:37 Pulse Ox 92 10/07/22 11:37 O2 Del Method Room Air 10/07/22 11:37 10/07/22 10/07/22 10/07/22 06:59 14:59 22:59 Intake Total 861.667 / 2365.000 1330 / 1330 Balance 861.667 / 2365.000 1330 / 1330 Weight last 48 hrs Weight 113.398 kg Physical Exam HENMT: COMMON NORMALS: normocephalic and atraumatic HEAD & SCALP: normocephalic and atraumatic Resp: COMMON NORMALS: clear to auscultation bilaterally EFFORT & INSPECTION: Yes symmetric chest movement AUSCULTATION: clear to auscultation bilaterally Cardio: COMMON NORMALS: regular rate, regular rhythm, S1 normal heart sound present, S2 normal heart sound present, No gallops present (Cardio), No murmurs present (Cardio), No rub (Cardio) and Peripheral pulses 2+ throughout RATE: regular rate RHYTHM: regular rhythm HEART SOUNDS: S1 normal heart sound present and S2 normal heart sound present PERIPHERAL PULSES: Peripheral pulses 2+ throughout GI: COMMON NORMALS: Normal to inspection, nondistended, normoactive bowel sounds present, Soft to palpation, non-tender, No hepatosplenomegaly present and no masses AUSCULTATION: Yes normoactive bowel sounds PALPATION: Yes Soft to palpation and Yes No hepatosplenomegaly present RECTAL EXAM: deferred Extremity: COMMON NORMALS: no clubbing, cyanosis or edema and no pedal edema NARRATIVE EXTREMITY EXAM: Left upper thigh medial as well as anterior aspect redness and swelling present. Data 10/07/22 04:44 10/07/22 04:44 Micro: Microbiology 10/06/22 09:52 Urine Culture - Preliminary Urine,Clean Catch 10/06/22 08:00 Blood Culture - Preliminary Blood NEGATIVE TO DATE 10/06/22 08:03 Blood Culture - Preliminary Blood NEGATIVE TO DATE A&P Assessment and plan (1) Cellulitis: (2) Hypokalemia: (3) Leukocytosis: Qualifiers: Leukocytosis type: unspecified Qualified Code(s): D72.829 - Elevated white blood cell count, unspecified (4) UTI (urinary tract infection): Plan 47 year old female with past medical history of chronic left lower extremity ulcer came in today with chief complaint worsening left lower extremity pain, redness and swelling. Assessment: Left lower extremity cellulitis: CRP 271 ESR: 90 Follow blood culture For now continue broad-spectrum antibiotic vancomycin and cefepime. We will plan to discharge on p.o. antibiotic Hypokalemia: Monitor and replace serum potassium Possible UTI: Follow urine culture Antibiotics as above Mild elevated lactic acid: Repeat lactic acid has normalized Was on IV hydration Leukocytosis: Improving Possibly could be secondary to UTI Monitor CBC Appropriately covered with antibiotics No suspicion for sepsis Attestations Medical Necessity Statement*: In hospital for IV antibiotics. Coding Level of Care Code Acute Code for [facility] Diagnoses Cellulitis L03.90 Hypokalemia E87.6 Leukocytosis D72.829 Leukocytosis type: unspecified UTI (urinary tract infection) N39.0
[2022-10-07] MEDS: enoxaparin 40 mg/0.4 mL Syringe SUBCUT (17:00)
[2022-10-07] MEDS: acetaminophen 325 mg Tablet 650 MG PO (20:18)
[2022-10-08] VITALS (13 sets, daily range): BP systolic 100–149; BP diastolic 60–85; PULSE 90–115; RESP 16–19; TEMP 36.6–37.3; O2SAT 95–99
[2022-10-08 02:53] LABS: Basophils % 0.4 %; Eosinophils # 0.3 10^3/uL (0.0-0.8); Eosinophils % 2.8 %; Hematocrit 33.7 % (37.0-47.0); Hemoglobin 10.7 g/dL (11.5-15.3); Lymphocytes # 2.1 10^3/uL (0.8-4.8); Lymphocytes % 21.5 %; Mean Corpuscular HGB Conc 31.8 g/dL (30.0-36.0); Mean Corpuscular Hemoglobin 29.6 pg (28.0-34.0); Mean Corpuscular Volume 93.4 fl (81-99); Mean Platelet Volume 9.1 fL (7.4-10.4); Monocytes # 0.8 10^3/uL (0.2-0.9); Monocytes % 8.1 %; Neutrophils # 6.61 10^3/uL (1.8-7.7); Neutrophils % 66.4 %; Nucleated Red Blood Cells % 0 %; Platelet Count 315 10^3/cmm (130-400); Red Blood Count 3.61 10^6/uL (4.1-5.3); Red Cell Distribution Width 13.8 % (12.1-15.1)
[2022-10-08 03:15] LABS: Chloride 106 mmol/L (98-107); Potassium 3.5 mmol/L (3.5-5.1); Sodium 138 mmol/L (136-145); Vancomycin Trough 11.1 ug/mL (10-15)
[2022-10-08 03:41] LABS: Anion Gap 13.5 (5-19); Blood Urea Nitrogen 12 mg/dL (6-20); Calcium 9.1 mg/dL (8.5-10.5); Carbon Dioxide 22 mmol/L (22-29); Glomerular Filtration Rate 133.4 mL/min (90-130); Glucose 107 mg/dL (65-115); Osmolality Calculated 286 mOsm/kg (285-295)
[2022-10-08] MEDS: vancomycin 1,500 MG/300 ML PIGGYBACK 200 MG IV ×2 (04:13→15:07)
[2022-10-08] MEDS: albuterol 2.5 mg/3 mL Neb INHALATION ×4 (07:30→20:32)
[2022-10-08] MEDS: budesonide 0.5 mg/2 mL Neb INHALATION ×2 (07:30→20:32)
[2022-10-08] MEDS: cefepime 1,000 MG in sodium chloride 0.9% (plus) 50 ML 100 MG IV ×2 (07:56→20:20)
--- NOTE | 2022-10-08 13:35 | CT_ITS ---
WS: [id number] CT LEFT LOWER EXTREMITY WITH CONTRAST HISTORY: Osteo, abscess Technique: All CT scans at [facility] use at least one of these dose optimization techniques: automated exposure control; mA and/or kV adjustment per patient size (includes targeted exams where dose is matched to clinical indication); or iterative reconstruction. DLP: 705.87 mGy.cm COMPARISON: 08/21/2022 Progression of the amount of edema throughout the LEFT lower extremity since 08/21/2022. Beginning at the level of the distal femur through the ankle there is increasing and progressive soft tissue thick ening and cellulitis. Increasing fluid becomes more significant at the mid tibia to the ankle. There is no well formed enhancing collection to suggest abscess. No destructive bone lesion is identified b y CT. No fracture. CT/CT lower leg LT w con [id number] IMPRESSION: 1. Progression of cellulitis throughout the LEFT lower extremity since 08/22/19 23. 2. Significant edema and soft tissue thickening towards the ankle. No abscess identified. No bone destruction.
[2022-10-08 13:51] LABS: Erythrocyte Sedimentation Rate 64 mm/hr (0-15)
[2022-10-08] MEDS: iohexol 350 mg/mL 500 mL Btl (per mL) IV (13:59)
[2022-10-08 14:24] LABS: Procalcitonin 0.12 ng/mL (0-0.5); Thyroid Stimulating Hormone 1.57 uIU/mL (0.27-4.20); Vitamin B12 484 pg/mL (232-1245)
[2022-10-08 14:35] LABS: C Reactive Protein 133.6 mg/L (0.0-4.9); Iron 19 ug/dL (37-145); Percent Saturation 7.4 % (20-50); Total Iron Binding Capacity 255 mcg/dl; Unsaturated Iron Binding 236 ug/dL (112-347)
[2022-10-08] MEDS: enoxaparin 40 mg/0.4 mL Syringe SUBCUT (15:07)
--- NOTE | 2022-10-08 16:05 | P.PN_ITS ---
Subjective Subjective: Hospital course, labs appreciated. Examination patient sitting up in chair. Denies any nausea, vomiting, headache. States she thinks her leg is improving but still red. Denies any secretions from the wound. Asking when can she go home. Blood work today shows resolution of leukocytosis, stable hemoglobin, stable CMP. Vitals/I&O/Wt Last Vital Signs Temp 98.6 F 10/08/22 11:25 Pulse 90 10/08/22 15:06 Resp 16 10/08/22 15:06 BP 118/80 10/08/22 11:25 Pulse Ox 98 10/08/22 15:06 O2 Del Method Room Air 10/08/22 15:06 10/08/22 10/08/22 10/08/22 06:59 14:59 22:59 Intake Total 780 / 2940 530 / 530 Balance 780 / 2940 530 / 530 Physical Exam HENMT: COMMON NORMALS: normocephalic and atraumatic HEAD & SCALP: normoc ephalic and atraumatic Resp: COMMON NORMALS: clear to auscultation bilaterally EFFORT & INSPECTION: Yes symmetric chest movement AUSCULTATION: clear to auscultation bilaterally Cardio: COMMON NORMALS: regular rate, regular rhythm, S1 normal heart sound present, S2 normal heart sound present, No gallops present (Cardio), No murmurs present (Cardio), No rub (Cardio) and Peripheral pulses 2+ throughout RATE: regular rate RHYTHM: regular rhythm HEART SOUNDS: S1 normal heart sound present and S2 normal heart sound present PERIPHERAL PULSES: Peripheral pulses 2+ throughout GI: COMMON NORMALS: Normal to inspection, nondistended, normoactive bowel sounds present, Soft to palpation, non-tender, No hepatosplenomegaly present and no masses AUSCULTATION: Yes normoactive bowel sounds PALPATION: Yes Soft to palpation and Yes No hepatosplenomegaly present RECTAL EXAM: deferred Extremity: COMMON NORMALS: no clubbing, cyanosis or edema and no pedal edema NARRATIVE EXTREMITY EXAM: Left upper thigh medial as well as anterior aspect redness and swelling present with 2 dried up open wounds present in left lateral anterior cruz, vesicular rash present over the knee. Data 10/08/22 02:44 10/08/22 02:44 Micro: Microbiology 10/06/22 09:52 Urine Culture - Final Urine,Clean Catch A&P Assessment and plan (1) Cellulitis: (2) Hypokalemia: (3) Leukocytosis: Qualifiers: Leukocytosis type: unspecified Qualified Code(s): D72.829 - Elevated white blood cell count, unspecified (4) UTI (urinary tract infection): Plan 47 year old female with past medical history of chronic left lower extremity ulcer came in today with chief complaint worsening left lower extremity pain, redness and swelling. Assessment: Left lower extremity cellulitis: Cannot rule out underlying abscess. Will check lower limb CT scan. Repeat ESR, CRP. Follow-up blood culture. Review of old cultures from August 2021 wounds in the leg grew Pseudomonas, Klebsiella and MRSA. For now continue with vancomycin, cefepime. For now patient would benefit from continued IV antibiotics for next 24 to 48 hours. We will plan to switch to oral antibiotics on discharge. Check ESR, CRP, vitamin B12, TSH, iron panel, A1c. Regular diet Lovenox for DVT prophylaxis Discharge planning: Discharge back to assisted living once medically stable. Patient most likely require IV antibiotics for next 24 to 48 hours. Attestations Medical Necessity Statement*: Requires further hospitalization for management of lower limb extremity cellulitis while underlying abscess or osteomyelitis is ruled out Diagnoses Cellulitis L03.90 Hypokalemia E87.6 Leukocytosis D72.829 Leukocytosis type: unspecified UTI (urinary tract infection) N39.0
--- NOTE | 2022-10-08 19:46 | PC.NURSE ---
Addendum entered by Delmy Tuttle RN 10/08/22 20:09: Morphine x1 ordered. Original Note: Patient asking for something for pain to left leg. PRN Hydrocodone unable to be given until 2099. Dr. Ladd notified.
[2022-10-08] MEDS: morphine 4 mg/mL SDV 1 mL 2 MG IVP (20:19)
[2022-10-08] MEDS: HYDROcodone-acetaminophen 5-325 mg Tablet 1 TAB PO (20:56)
[2022-10-09] VITALS (11 sets, daily range): BP systolic 109–133; BP diastolic 75–84; PULSE 75–101; RESP 16–18; TEMP 36.4–37.1; O2SAT 96–100
[2022-10-09] MEDS: vancomycin 1,500 MG/300 ML PIGGYBACK 200 MG IV ×2 (02:25→13:52)
[2022-10-09 05:46] LABS: Basophils % 0.3 %; Eosinophils # 0.6 10^3/uL (0.0-0.8); Eosinophils % 4.7 %; Hematocrit 32.6 % (37.0-47.0); Hemoglobin 10.3 g/dL (11.5-15.3); Mean Corpuscular HGB Conc 31.6 g/dL (30.0-36.0); Mean Corpuscular Hemoglobin 28.9 pg (28.0-34.0); Mean Corpuscular Volume 91.6 fl (81-99); Mean Platelet Volume 9.3 fL (7.4-10.4); Monocytes # 0.9 10^3/uL (0.2-0.9); Monocytes % 6.9 %; Neutrophils % 71.8 %; Nucleated Red Blood Cells % 0 %; Platelet Count 373 10^3/cmm (130-400); Red Blood Count 3.56 10^6/uL (4.1-5.3); Red Cell Distribution Width 14.1 % (12.1-15.1); White Blood Count 13.2 10^3/uL (4.0-10.0)
[2022-10-09 06:17] LABS: Alanine Aminotransferase 10 U/L (0-33); Albumin Level 2.9 g/dL (3.5-5.2); Alkaline Phosphatase 71 U/L (35-105); Anion Gap 12.6 (5-19); Aspartate Amino Transferase 9 U/L (0-32); Blood Urea Nitrogen 8 mg/dL (6-20); Calcium 8.9 mg/dL (8.5-10.5); Carbon Dioxide 22 mmol/L (22-29); Chloride 109 mmol/L (98-107); Globulin 3.4 g/dL (1.3-4.6); Glomerular Filtration Rate 172.6 mL/min (90-130); Glucose 91 mg/dL (65-115); Osmolality Calculated 288 mOsm/kg (285-295); Potassium 3.6 mmol/L (3.5-5.1); Sodium 140 mmol/L (136-145); Total Bilirubin 0.2 mg/dL (0.15-1.2); Total Protein 6.3 g/dL (6.6-8.7)
[2022-10-09 06:31] LABS: Estmated Average Glucose 105; Folate Level 9.4 ng/mL (4.8-37.3); Hemoglobin A1C 5.3 % (4.0-6.0)
[2022-10-09 06:32] LABS: Chol HDL Ratio 3.94 mg/dL (0.0-4.40); Cholesterol 142 mg/dL (0-200); HDL Cholesterol 36 mg/dL (60-100); LDL Cholesterol Calculated 92 mg/dL (50-129); Triglycerides 71 mg/dL (0-150); VLDL Cholestrol Calculation 14 mg/dL (0-30)
[2022-10-09] MEDS: cefepime 1,000 MG in sodium chloride 0.9% (plus) 50 ML 100 MG IV ×2 (07:55→20:21)
--- NOTE | 2022-10-09 09:56 | PM.DCS ---
Discharge Providers Date of Admission: 10/06/22 10:41 Date of Discharge: October 09, 2022 Attending Provider at Admission: Duc Stratton MD Attending Provider at Discharge: Aaron Sousa MD Primary Care Provider: Shwetha Thomas MD Diagnoses at Discharge Discharge Diagnosis (1) Cellulitis: Status: Acute (2) Hypokalemia: Status: Acute (3) Leukocytosis: Status: Acute Qualifiers: Leukocytosis type: unspecified Qualified Code(s): D72.829 - Elevated white blood cell count, unspecified (4) UTI (urinary tract infection): Status: Acute Reason for Visit Reason for Visit: LEFT LEG PAIN AND SWELLING Physical Exam HENMT: COMMON NORMALS: normocephalic and atraumatic HEAD & SCALP: normocephalic and atraumatic Resp: COMMON NORMALS: clear to auscultation bilaterally EFFORT & INSPECTION: Yes symmetric chest movement AUSCULTATION: clear to auscultation bilaterally Cardio: COMMON NORMALS: regular rate, regular rhythm, S1 normal heart sound present, S2 normal heart sound present, No gallops present (Cardio), No murmurs present (Cardio), No rub (Cardio) and Peripheral pulses 2+ throughout RATE: regular rate RHYTHM: regular rhythm HEART SOUNDS: S1 normal heart sound present and S2 normal heart sound present PERIPHERAL PULSES: Peripheral pulses 2+ throughout GI: COMMON NORMALS: Normal to inspection, nondistended, normoactive bowel sounds present, Soft to palpation, non-tender, No hepatosplenomegaly present and no masses AUSCULTATION: Yes normoactive bowel sounds PALPATION: Yes Soft to palpation and Yes No hepatosplenomegaly present RECTAL EXAM: deferred Extremity: COMMON NORMALS: no clubbing, cyanosis or edema and no pedal edema NARRATIVE EXTREMITY EXAM: Left upper thigh medial as well as anterior aspect redness and swelling present with 2 dried up open wounds present in left lateral anterior cruz, vesicular rash present over the knee. Discharge Data Studies Completed and Pending Completed Studies During Hospitalization Category Date Time Status CT lower leg LT w con [id number] Routine Cat Scan 10/08/22 13:35 Completed US venous duplex lower extremity LT [CV venous duplex Ultrasound 10/06/22 07:30 [place] [id number]] Stat Pending at discharge Category Date Time Status Blood Culture Stat Lab 10/06/22 08:00 Results Vancomycin Trough Timed Lab 10/10/22 02:00 Ordered Radiology Impressions Venous Duplex 10/06/22 07:30 IMPRESSION: No evidence of acute left lower extremity DVT. Lower Extremity CT 10/08/22 13:35 IMPRESSION: 1. Progression of cellulitis throughout the LEFT lower extremity since 08/21/2022. 2. Significant edema and soft tissue thickening towards the ankle. No abscess identified. No bone destruction. Laboratory Results WBC 13.2 10^3/uL (4.0-10.0) H 10/09/22 05:10 RBC 3.56 10^6/uL (4.1-5.3) L 10/09/22 05:10 Hgb 10.3 g/dL (11.5-15.3) L 10/09/22 05:10 Hct 32.6 % (37.0-47.0) L 10/09/22 05:10 MCV 91.6 fl (81-99) 10/09/22 05:10 MCH 28.9 pg (28.0-34.0) 10/09/22 05:10 MCHC 31.6 g/dL (30.0-36.0) 10/09/22 05:10 RDW 14.1 % (12.1-15.1) 10/09/22 05:10 Plt Count 373 10^3/cmm (130-400) 10/09/22 05:10 MPV 9.3 fL (7.4-10.4) 10/09/22 05:10 Neut % (Auto) 71.8 % 10/09/22 05:10 Lymph % (Auto) 15.0 % 10/09/22 05:10 [place] % (Auto) 6.9 % 10/09/22 05:10 Eos % (Auto) 4.7 % 10/09/22 05:10 Baso % (Auto) 0.3 % 10/09/22 05:10 Neut # (Auto) 9.50 10^3/uL (1.8-7.7) H 10/09/22 05:10 Lymph # (Auto) 2.0 10^3/uL (0.8-4.8) 10/09/22 05:10 [place] # (Auto) 0.9 10^3/uL (0.2-0.9) 10/09/22 05:10 Eos # (Auto) 0.6 10^3/uL (0.0-0.8) 10/09/22 05:10 Baso # (Auto) 0.0 10^3/uL (0.0-0.1) 10/09/22 05:10 Nucleated RBC % (auto) 0 % 10/09/22 05:10 Nucleated RBCs # 0.0 /100WBC 10/09/22 05:10 ESR 64 mm/hr (0-15) H 10/08/22 02:44 Sodium 140 mmol/L (136-145) 10/09/22 05:10 Potassium 3.6 mmol/L (3.5-5.1) 10/09/22 05:10 Chloride 109 mmol/L (98-107) H 10/09/22 05:10 Carbon Dioxide 22 mmol/L (22-29) 10/09/22 05:10 Anion Gap 12.6 (5-19) 10/09/22 05:10 BUN 8 mg/dL (6-20) 10/09/22 05:10 Creatinine 0.4 mg/dL (0.5-0.9) L 10/09/22 05:10 GFR Calculation 172.6 mL/min (90-130) H 10/09/22 05:10 Glucose 91 mg/dL (65-115) 10/09/22 05:10 Estimat Average Glucose 105 10/09/22 05:10 Hemoglobin A1c 5.3 % (4.0-6.0) 10/09/22 05:10 Calculated Osmolality 288 mOsm/kg (285-295) 10/09/22 05:10 Lactic Acid 2.9 mmol/L (0.5-2.2) H 10/06/22 08:00 Lactic Acid (Sepsis) 1.0 mmol/L (0.5-2.2) 10/06/22 11:34 Calcium 8.9 mg/dL (8.5-10.5) 10/09/22 05:10 Iron 19 ug/dL (37-145) L 10/08/22 02:44 TIBC 255 mcg/dl 10/08/22 02:44 % Saturation 7.4 % (20-50) L 10/08/22 02:44 Unsat Iron Binding 236 ug/dL (112-347) 10/08/22 02:44 Total Bilirubin 0.2 mg/dL (0.15-1.2) 10/09/22 05:10 AST 9 U/L (0-32) 10/09/22 05:10 ALT 10 U/L (0-33) 10/09/22 05:10 Alkaline Phosphatase 71 U/L (35-105) 10/09/22 05:10 C-Reactive Protein 133.6 mg/L (0.0-4.9) H 10/08/22 02:44 Total Protein 6.3 g/dL (6.6-8.7) L 10/09/22 05:10 Albumin 2.9 g/dL (3.5-5.2) L 10/09/22 05:10 Globulin 3.4 g/dL (1.3-4.6) 10/09/22 05:10 Triglycerides 71 mg/dL (0-150) 10/09/22 05:10 Cholesterol 142 mg/dL (0-200) 10/09/22 05:10 LDL Cholesterol, Calc 92 mg/dL (50-129) 10/09/22 05:10 Total VLDL Cholesterol 14 mg/dL (0-30) 10/09/22 05:10 HDL Cholesterol 36 mg/dL (60-100) L 10/09/22 05:10 Cholesterol/HDL Ratio 3.94 mg/dL (0.0-4.40) 10/09/22 05:10 Vitamin B12 484 pg/mL (232-1245) 10/08/22 02:44 Folate 9.4 ng/mL (4.8-37.3) 10/09/22 05:10 Procalcitonin 0.12 ng/mL (0-0.5) 10/08/22 02:44 TSH 1.57 uIU/mL (0.27-4.20) 10/08/22 02:44 Urine Color Straw (Yellow) 10/06/22 09:52 Urine Appearance Clear (CLEAR) 10/06/22 09:52 Urine pH 6.5 (5-7) 10/06/22 09:52 Ur Specific [place] 1.000 (1.005-1.030) L 10/06/22 09:52 Urine Protein Neg (Negative) 10/06/22 09:52 Urine Glucose (UA) Norm (Normal) 10/06/22 09:52 Urine Ketones Negative (Negative) 10/06/22 09:52 Urine Blood Neg (Negative) 10/06/22 09:52 Urine Nitrate Negative (Negative) 10/06/22 09:52 Urine Bilirubin Neg (Negative) 10/06/22 09:52 Urine Urobilinogen Norm mg/dL (Negative) 10/06/22 09:52 Ur Leukocyte Esterase 2+ (Negative) H 10/06/22 09:52 Urine RBC None /hpf (0-2) 10/06/22 09:52 Urine WBC 15-25 /hpf (0-5) H 10/06/22 09:52 Ur Squamous Epith Cells 5-10 /hpf (0-5) H 10/06/22 09:52 Amorphous Sediment Not Reportable 10/06/22 09:52 Urine Bacteria 1+ /hpf (NONE) H 10/06/22 09:52 Vancomycin Trough 11.1 ug/mL (10-15) 10/08/22 02:44 Vitals Last Vital Signs Temp 98.6 F 10/09/22 07:50 Pulse 99 10/09/22 08:00 Resp 18 10/09/22 08:00 BP 132/84 10/09/22 07:50 Pulse Ox 96 10/09/22 08:00 O2 Del Method Room Air 10/09/22 08:00 Discharge Plan Discharge Patient Disposition: Home Condition: Stable Prescriptions: No Action montelukast [Singulair] 10 mg tablet 10 mg PO DAILY@20 ibuprofen 800 mg tablet 800 mg PO TID@06,12,20 fluticasone propion-salmeterol [Advair Diskus] 250-50 mcg/dose blister with device 1 inh inhalation BID@,20 albuterol sulfate [Ventolin HFA] 90 mcg/actuation HFA aerosol inhaler 1 puff inhalation BID@06,20 desogestrel-ethinyl estradiol [Isibloom] 0.15-0.03 mg tablet 1 tab PO DAILY@06 lorazepam 0.5 mg tablet 0.5 mg PO QID Rx Instructions: @06:00,12:00,16:00,20:00 oxybutynin chloride 5 mg tablet 5 mg PO BID@06,20 vitamin A and D Ointment See Rx Instructions .ROUTE .COMPLEX Rx Instructions: Apply topically to the irritated skin around the wound daily@08:00 mupirocin 2 % ointment See Rx Instructions .ROUTE .COMPLEX Rx Instructions: apply topically to leg wounds bid@06,20 albuterol sulfate 2.5 mg /3 mL (0.083 %) Solution For Nebulization 2.5 mg INHALATION QID PRN (Reason: Wheezing) acetaminophen [Pain Relief (acetaminophen)] 500 mg Tablet 1,000 mg PO Q6H PRN (Reason: Pain) diphenhydramine HCl [Banophen] 25 mg Tablet 25 mg PO Q6H PRN (Reason: Itching) docusate sodium [Colace] 100 mg Capsule 100 mg PO DAILY PRN (Reason: Constipation) hydroxyzine HCl 25 mg Tablet 25 mg PO Q6H PRN (Reason: Itching) Santyl 250 unit/gram ointment 1 applic TOPICAL DAILY Rx Instructions: apply to wound [place] Nasal 0.65 % Aerosol,[place] See Rx Instructions .ROUTE .COMPLEX Rx Instructions: administer into each nostril as directed as needed for dryness (may keep at bedside) triamcinolone acetonide 0.1 % cream 1 applic topical DAILY@08 nystatin 100,000 unit/gram cream 1 applic topical DAILY@08 furosemide [Lasix] 40 mg Tablet 40 mg PO DAILY Qty: 60 0RF potassium chloride 20 mEq tablet extended release 20 meq PO DAILY@06 Qty: 30 0RF ibuprofen 800 mg Tablet 800 mg PO TID clobetasol 0.05 % ointment 1 applic TOPICAL BID PRN (Reason: Rash) hydrochlorothiazide 25 mg tablet 25 mg PO DAILY Referrals: Shwetha Thomas MD [Primary Care Provider] - Patient Instructions: Opioid Safety Coding Level of Care Code Acute Code for Chg Fwd Diagnoses Cellulitis L03.90 Hypokalemia E87.6 Leukocytosis D72.829 Leukocytosis type: unspecified UTI (urinary tract infection) N39.0
--- NOTE | 2022-10-09 10:08 | P.PN_ITS ---
Subjective Subjective: No acute vents overnight. Patient has remained hemodynamically stable and afebrile. Tmax in last 24 hours 99.2 Fahrenheit. Patient denies any nausea, vomiting, headache. States leg seems to be improving without any pain. Rash and anemia. On Saturday which was 3 days ago. Denies any history of herpes. Vitals/I&O/Wt Last Vital Signs Temp 98.6 F 10/09/22 07:50 Pulse 99 10/09/22 08:00 Resp 18 10/09/22 08:00 BP 132/84 10/09/22 07:50 Pulse Ox 96 10/09/22 08:00 O2 Del Method Room Air 10/09/22 08:00 10/08/22 10/09/22 10/09/22 22:59 06:59 14:59 Intake Total 350 / 880 300 / 1180 530 / 530 Balance 350 / 880 300 / 1180 530 / 530 Physical Exam HENMT: COMMON NORMALS: normocephalic and atraumatic HEAD & SCALP: normocephalic and atraumatic Resp: COMMON NORMALS: clear to auscultation bilaterally EFFORT & INSPECTION: Yes symmetric chest movement AUSCULTATION: clear to auscultation bilaterally Cardio: COMMON NORMALS: regular rate, regular rhythm, S1 normal heart sound present, S2 normal heart sound present, No gallops present (Cardio), No murmurs present (Cardio), No rub (Cardio) and Peripheral pulses 2+ throughout RATE: regular rate RHYTHM: regular rhythm HEART SOUNDS: S1 normal heart sound present and S2 normal heart sound present PERIPHERAL PULSES: Peripheral pulses 2+ throughout GI: COMMON NORMALS: Normal to inspection, nondistended, normoactive bowel sounds present, Soft to palpation, non-tender, No hepatosplenomegaly present and no masses AUSCULTATION: Yes normoactive bowel sounds PALPATION: Yes Soft to palpation and Yes No hepatosplenomegaly present RECTAL EXAM: deferred Extremity: COMMON NORMALS: no clubbing, cyanosis or edema and no pedal edema NARRATIVE EXTREMITY EXAM: Left upper thigh medial as well as anterior aspect redness and swelling present with 2 dried up open wounds present in left lateral anterior cruz, vesicular rash present over the knee. Skin: OTHER: Left leg Data 10/09/22 05:10 10/09/22 05:10 Micro: Microbiology 10/06/22 09:52 Urine Culture - Final Urine,Clean Catch A&P Assessment and plan (1) Cellulitis: (2) Hypokalemia: (3) Leukocytosis: Qualifiers: Leukocytosis type: unspecified Qualified Code(s): D72.829 - Elevated white blood cell count, unspecified (4) UTI (urinary tract infection): Plan 47 year old female with past medical history of chronic left lower extremity ulcer came in today with chief complaint worsening left lower extremity pain, redness and swelling. Assessment: Left lower extremity cellulitis: Osteomyelitis and underlying abscess ruled out with lower limb CT scan. Continues to have leukocytosis. Afebrile. Clinically seems to be improving though. Review of old cultures from August 2021 wounds in the leg grew Pseudomonas, Klebsiella and MRSA. For now continue with vancomycin, cefepime. For now patient would benefit from continued IV antibiotics for next 24 to 48 hours. We will plan to switch to oral antibiotics on discharge. Regular diet Lovenox for DVT prophylaxis Discussed in detail with patient regarding further needs of IV antibiotics for next few days followed by oral antibiotics given extension of cellulitis which seems to be improving very gradually. Patient verbalized understanding and is agreeable to stay. Attestations Medical Necessity Statement*: Requires further hospitalization for management gradual improvement of left lower limb cellulitis with persistent leukocytosis Diagnoses Cellulitis L03.90 Hypokalemia E87.6 Leukocytosis D72.829 Leukocytosis type: unspecified UTI (urinary tract infection) N39.0
--- NOTE | 2022-10-09 10:49 | PC.SOCIAL ---
Pg 2 IMM Explained to pt & family Pg 2 IMM. No questions voiced. Provided pt a copy. Initialed, dated, & timed a copy & placed in chart.
[2022-10-09] MEDS: albuterol 2.5 mg/3 mL Neb INHALATION ×3 (11:00→20:37)
[2022-10-09] MEDS: acetaminophen 325 mg Tablet 650 MG PO (11:10)
[2022-10-09] MEDS: enoxaparin 40 mg/0.4 mL Syringe SUBCUT (13:51)
[2022-10-09] MEDS: HYDROcodone-acetaminophen 5-325 mg Tablet 1 TAB PO (20:18)
[2022-10-09] MEDS: budesonide 0.5 mg/2 mL Neb INHALATION (20:36)
[2022-10-10 01:38] LABS: Basophils % 0.3 %; Eosinophils # 0.9 10^3/uL (0.0-0.8); Eosinophils % 7.5 %; Hematocrit 30.7 % (37.0-47.0); Hemoglobin 9.8 g/dL (11.5-15.3); Lymphocytes # 2.4 10^3/uL (0.8-4.8); Lymphocytes % 20.2 %; Mean Corpuscular HGB Conc 31.9 g/dL (30.0-36.0); Mean Corpuscular Hemoglobin 28.8 pg (28.0-34.0); Mean Corpuscular Volume 90.3 fl (81-99); Mean Platelet Volume 8.8 fL (7.4-10.4); Monocytes # 0.7 10^3/uL (0.2-0.9); Monocytes % 6.2 %; Neutrophils # 7.69 10^3/uL (1.8-7.7); Neutrophils % 64.3 %; Nucleated Red Blood Cells % 0 %; Platelet Count 346 10^3/cmm (130-400); Red Cell Distribution Width 14.1 % (12.1-15.1)
[2022-10-10 01:53] LABS: Alanine Aminotransferase 9 U/L (0-33); Albumin Level 2.7 g/dL (3.5-5.2); Alkaline Phosphatase 75 U/L (35-105); Anion Gap 11.6 (5-19); Aspartate Amino Transferase 8 U/L (0-32); Blood Urea Nitrogen 10 mg/dL (6-20); Calcium 9.1 mg/dL (8.5-10.5); Carbon Dioxide 22 mmol/L (22-29); Chloride 108 mmol/L (98-107); Globulin 3.2 g/dL (1.3-4.6); Glomerular Filtration Rate 172.6 mL/min (90-130); Glucose 102 mg/dL (65-115); Osmolality Calculated 285 mOsm/kg (285-295); Potassium 3.6 mmol/L (3.5-5.1); Sodium 138 mmol/L (136-145); Total Bilirubin 0.2 mg/dL (0.15-1.2); Total Protein 5.9 g/dL (6.6-8.7)
[2022-10-10 01:54] LABS: Vancomycin Trough 12.3 ug/mL (10-15)
[2022-10-10] MEDS: vancomycin 1,500 MG/300 ML PIGGYBACK 200 MG IV (03:25)
[2022-10-10 04:00] VITALS: BP 114/77; PULSE 87; RESP 16; TEMP 37.4; O2SAT 96
[2022-10-10 07:46] VITALS: BP 143/85; PULSE 92; RESP 18; TEMP 36.6; O2SAT 98
[2022-10-10 08:00] VITALS: PULSE 81; RESP 16; O2SAT 98
[2022-10-10] MEDS: albuterol 2.5 mg/3 mL Neb INHALATION ×2 (08:05→13:06)
[2022-10-10] MEDS: budesonide 0.5 mg/2 mL Neb INHALATION (08:05)
[2022-10-10] MEDS: cefepime 1,000 MG in sodium chloride 0.9% (plus) 50 ML 100 MG IV (08:08)
[2022-10-10] MEDS: acetaminophen 325 mg Tablet 650 MG PO (08:12)
--- NOTE | 2022-10-10 10:19 | P.DS_ITS ---
Discharge Providers Date of Admission: 10/06/22 10:41 Date of Discharge: October 10, 2022 Attending Provider at Admission: Duc Stratton MD Attending Provider at Discharge: Aaron Sousa MD Primary Care Provider: Shwetha Thomas MD Diagnoses at Discharge Discharge Diagnosis (1) Cellulitis: Status: Acute (2) Hypokalemia: Status: Acute (3) Leukocytosis: Status: Acute Qualifiers: Leukocytosis type: unspecified Qualified Code(s): D72.829 - Elevated white blood cell count, unspecified (4) UTI (urinary tract infection): Status: Acute Reason for Visit Reason for Visit: LEFT LEG PAIN AND SWELLING Brief History: History as per HPI: Chuyita Kilpatrick is a 47 year old female with past medical history of chronic left lower extremity ulcer came in today with chief complaint worsening left lower extremity pain, redness and swelling. She usually wears a compression stocking she has chronic lower extremity ulcers, for which she goes to wound care clinic, and appears to be healing well. Left lower extremity Doppler vein done today: Showed no DVT.Pertinent labs have shown hypokalemia, mildly elevated lactic acid, leukocytosis. She was started on vancomycin for left lower extremity cellulitis in the ER.? Hospital Course Hospital Course Patient was admitted to the hospital further evaluation and management of left lower limb cellulitis. CT lower limb ruled out any abscess or osteomyelitis. He was started on broad-spectrum antibiotics. Blood cultures during hospitalization remain negative. Patient showed very gradual improvement on IV antibiotics. Hospitalization was otherwise unremarkable. She has been discharged hemodynamically stable condition on oral antibiotics with linezolid and Levaquin for next 10 days. She is to continue to follow-up with wound care as an outpatient. Wound care is to be done with Hydrofera Blue. Physical Exam HENMT: COMMON NORMALS: normocephalic and atraumatic HEAD & SCALP: normoce phalic and atraumatic Resp: COMMON NORMALS: clear to auscultation bilaterally EFFORT & INSPECTION: Yes symmetric chest movement AUSCULTATION: clear to auscultation bilaterally Cardio: COMMON NORMALS: regular rate, regular rhythm, S1 normal heart sound present, S2 normal heart sound present, No gallops present (Cardio), No murmurs present (Cardio), No rub (Cardio) and Peripheral pulses 2+ throughout RATE: regular rate RHYTHM: regular rhythm HEART SOUNDS: S1 normal heart sound present and S2 normal heart sound present PERIPHERAL PULSES: Peripheral pulses 2+ throughout GI: COMMON NORMALS: Normal to inspection, nondistended, normoactive bowel sounds present, Soft to palpation, non-tender, No hepatosplenomegaly present and no masses AUSCULTATION: Yes normoactive bowel sounds PALPATION: Yes Soft to palpation and Yes No hepatosplenomegaly present RECTAL EXAM: deferred Extremity: COMMON NORMALS: no clubbing, cyanosis or edema and no pedal edema NARRATIVE EXTREMITY EXAM: Left upper thigh medial as well as anterior aspect redness and swelling present with 2 dried up open wounds present in left lateral anterior cruz, vesicular rash present over the knee. Skin: OTHER: Left leg Discharge Data Studies Completed and Pending Completed Studies During Hospitalization Category Date Time Status CT lower leg LT w con [id number] Routine Cat Scan 10/08/22 13:35 Completed US venous duplex lower extremity LT [CV venous duplex Ultrasound 10/06/22 07:30 [place] [id number]] Stat Pending at discharge Category Date Time Status Blood Culture Stat Lab 10/06/22 08:00 Results Radiology Impressions Venous Duplex 10/06/22 07:30 IMPRESSION: No evidence of acute left lower extremity DVT. Lower Extremity CT 10/08/22 13:35 IMPRESSION: 1. Progression of cellulitis throughout the LEFT lower extremity since 08/21/2022. 2. Significant edema and soft tissue thickening towards the ankle. No abscess identified. No bone destruction. Microbiology 10/06/22 09:52 Urine,Clean Catch Urine Culture - Final 10/06/22 08:00 Blood Blood Culture - Preliminary NEGATIVE TO DATE 10/06/22 08:03 Blood Blood Culture - Preliminary NEGATIVE TO DATE Laboratory Results WBC 12.0 10^3/uL (4.0-10.0) H 10/10/22 01:30 RBC 3.40 10^6/uL (4.1-5.3) L 10/10/22 01:30 Hgb 9.8 g/dL (11.5-15.3) L 10/10/22 01:30 Hct 30.7 % (37.0-47.0) L 10/10/22 01:30 MCV 90.3 fl (81-99) 10/10/22 01:30 MCH 28.8 pg (28.0-34.0) 10/10/22 01:30 MCHC 31.9 g/dL (30.0-36.0) 10/10/22 01:30 RDW 14.1 % (12.1-15.1) 10/10/22 01:30 Plt Count 346 10^3/cmm (130-400) 10/10/22 01:30 MPV 8.8 fL (7.4-10.4) 10/10/22 01:30 Neut % (Auto) 64.3 % 10/10/22 01:30 Lymph % (Auto) 20.2 % 10/10/22 01:30 [place] % (Auto) 6.2 % 10/10/22 01:30 Eos % (Auto) 7.5 % 10/10/22 01:30 Baso % (Auto) 0.3 % 10/10/22 01:30 Neut # (Auto) 7.69 10^3/uL (1.8-7.7) 10/10/22 01:30 Lymph # (Auto) 2.4 10^3/uL (0.8-4.8) 10/10/22 01:30 [place] # (Auto) 0.7 10^3/uL (0.2-0.9) 10/10/22 01:30 Eos # (Auto) 0.9 10^3/uL (0.0-0.8) H 10/10/22 01:30 Baso # (Auto) 0.0 10^3/uL (0.0-0.1) 10/10/22 01:30 Nucleated RBC % (auto) 0 % 10/10/22 01:30 Nucleated RBCs # 0.0 /100WBC 10/10/22 01:30 ESR 64 mm/hr (0-15) H 10/08/22 02:44 Sodium 138 mmol/L (136-145) 10/10/22 01:30 Potassium 3.6 mmol/L (3.5-5.1) 10/10/22 01:30 Chloride 108 mmol/L (98-107) H 10/10/22 01:30 Carbon Dioxide 22 mmol/L (22-29) 10/10/22 01:30 Anion Gap 11.6 (5-19) 10/10/22 01:30 BUN 10 mg/dL (6-20) 10/10/22 01:30 Creatinine 0.4 mg/dL (0.5-0.9) L 10/10/22 01:30 GFR Calculation 172.6 mL/min (90-130) H 10/10/22 01:30 Glucose 102 mg/dL (65-115) 10/10/22 01:30 Estimat Average Glucose 105 10/09/22 05:10 Hemoglobin A1c 5.3 % (4.0-6.0) 10/09/22 05:10 Calculated Osmolality 285 mOsm/kg (285-295) 10/10/22 01:30 Lactic Acid 2.9 mmol/L (0.5-2.2) H 10/06/22 08:00 Lactic Acid (Sepsis) 1.0 mmol/L (0.5-2.2) 10/06/22 11:34 Calcium 9.1 mg/dL (8.5-10.5) 10/10/22 01:30 Iron 19 ug/dL (37-145) L 10/08/22 02:44 TIBC 255 mcg/dl 10/08/22 02:44 % Saturation 7.4 % (20-50) L 10/08/22 02:44 Unsat Iron Binding 236 ug/dL (112-347) 10/08/22 02:44 Total Bilirubin 0.2 mg/dL (0.15-1.2) 10/10/22 01:30 AST 8 U/L (0-32) 10/10/22 01:30 ALT 9 U/L (0-33) 10/10/22 01:30 Alkaline Phosphatase 75 U/L (35-105) 10/10/22 01:30 C-Reactive Protein 133.6 mg/L (0.0-4.9) H 10/08/22 02:44 Total Protein 5.9 g/dL (6.6-8.7) L 10/10/22 01:30 Albumin 2.7 g/dL (3.5-5.2) L 10/10/22 01:30 Globulin 3.2 g/dL (1.3-4.6) 10/10/22 01:30 Triglycerides 71 mg/dL (0-150) 10/09/22 05:10 Cholesterol 142 mg/dL (0-200) 10/09/22 05:10 LDL Cholesterol, Calc 92 mg/dL (50-129) 10/09/22 05:10 Total VLDL Cholesterol 14 mg/dL (0-30) 10/09/22 05:10 HDL Cholesterol 36 mg/dL (60-100) L 10/09/22 05:10 Cholesterol/HDL Ratio 3.94 mg/dL (0.0-4.40) 10/09/22 05:10 Vitamin B12 484 pg/mL (232-1245) 10/08/22 02:44 Folate 9.4 ng/mL (4.8-37.3) 10/09/22 05:10 Procalcitonin 0.12 ng/mL (0-0.5) 10/08/22 02:44 TSH 1.57 uIU/mL (0.27-4.20) 10/08/22 02:44 Urine Color Straw (Yellow) 10/06/22 09:52 Urine Appearance Clear (CLEAR) 10/06/22 09:52 Urine pH 6.5 (5-7) 10/06/22 09:52 Ur Specific [place] 1.000 (1.005-1.030) L 10/06/22 09:52 Urine Protein Neg (Negative) 10/06/22 09:52 Urine Glucose (UA) Norm (Normal) 10/06/22 09:52 Urine Ketones Negative (Negative) 10/06/22 09:52 Urine Blood Neg (Negative) 10/06/22 09:52 Urine Nitrate Negative (Negative) 10/06/22 09:52 Urine Bilirubin Neg (Negative) 10/06/22 09:52 Urine Urobilinogen Norm mg/dL (Negative) 10/06/22 09:52 Ur Leukocyte Esterase 2+ (Negative) H 10/06/22 09:52 Urine RBC None /hpf (0-2) 10/06/22 09:52 Urine WBC 15-25 /hpf (0-5) H 10/06/22 09:52 Ur Squamous Epith Cells 5-10 /hpf (0-5) H 10/06/22 09:52 Amorphous Sediment Not Reportable 10/06/22 09:52 Urine Bacteria 1+ /hpf (NONE) H 10/06/22 09:52 Vancomycin Trough 12.3 ug/mL (10-15) 10/10/22 01:30 Vitals Last Vital Signs Temp 97.8 F 10/10/22 07:46 Pulse 81 10/10/22 08:00 Resp 16 10/10/22 08:00 BP 143/85 10/10/22 07:46 Pulse Ox 98 10/10/22 08:00 O2 Del Method Room Air 10/10/22 08:00 Discharge Plan Discharge Patient Disposition: Home Condition: Stable Prescriptions: New linezolid 600 mg tablet 600 mg PO Q12H 10 Days Qty: 20 0RF levofloxacin 500 mg tablet 500 mg PO Q24H 10 Days Qty: 10 0RF Continued montelukast [Singulair] 10 mg tablet 10 mg PO DAILY@20 fluticasone propion-salmeterol [Advair Diskus] 250-50 mcg/dose blister with d evice 1 inh inhalation BID@06,20 albuterol sulfate [Ventolin HFA] 90 mcg/actuation HFA aerosol inhaler 1 puff inhalation BID@06,20 desogestrel-ethinyl estradiol [Isibloom] 0.15-0.03 mg tablet 1 tab PO DAILY@06 lorazepam 0.5 mg tablet 0.5 mg PO QID Rx Instructions: @06:00,12:00,16:00,20:00 oxybutynin chloride 5 mg tablet 5 mg PO BID@06,20 vitamin A and D Ointment See Rx Instructions .ROUTE .COMPLEX Rx Instructions: Apply topically to the irritated skin around the wound daily@08:00 mupirocin 2 % ointment See Rx Instructions .ROUTE .COMPLEX Rx Instructions: apply topically to leg wounds bid@06,20 albuterol sulfate 2.5 mg /3 mL (0.083 %) Solution For Nebulization 2.5 mg INHALATION QID PRN (Reason: Wheezing) acetaminophen [Pain Relief (acetaminophen)] 500 mg Tablet 1,000 mg PO Q6H PRN (Reason: Pain) diphenhydramine HCl [Banophen] 25 mg Tablet 25 mg PO Q6H PRN (Reason: Itching) docusate sodium [Colace] 100 mg Capsule 100 mg PO DAILY PRN (Reason: Constipation) hydroxyzine HCl 25 mg Tablet 25 mg PO Q6H PRN (Reason: Itching) Santyl 250 unit/gram ointment 1 applic TOPICAL DAILY Rx Instructions: apply to wound Deep Sea Nasal 0.65 % Aerosol,[place] See Rx Instructions .ROUTE .COMPLEX Rx Instructions: administer into each nostril as directed as needed for dryness (may keep at bedside) triamcinolone acetonide 0.1 % cream 1 applic topical DAILY@08 nystatin 100,000 unit/gram cream 1 applic topical DAILY@08 potassium chloride 20 mEq tablet extended release 20 meq PO DAILY@06 Qty: 30 0RF clobetasol 0.05 % ointment 1 applic TOPICAL BID PRN (Reason: Rash) hydrochlorothiazide 25 mg tablet 25 mg PO DAILY Changed ibuprofen 800 mg tablet 800 mg PO TID@06,12,20 PRN (Reason: pain or fever) Qty: 10 0RF Discontinued furosemide [Lasix] 40 mg Tablet 40 mg PO DAILY Qty: 60 0RF ibuprofen 800 mg Tablet 800 mg PO TID Discharge Orders: Discharge Order (Routine); Ordered 10/10/22 Ordered By: Aaron Sousa Referrals: Shwetha Thomas MD [Primary Care Provider] - 4-7 days (dr office will call with appointment) Patient Instructions: Levofloxacin (By mouth), Linezolid (By mouth) (Zyvox), Urinary Tract Infection in Women (DC), Cellulitis (ED), Opioid Safety Activity Restrictions/Additional Instructions: Continue wound care as before. Take linezolid and Levaquin which are the antibiotics for next 10 days. Linezolid 2 times a day and Levaquin is once a day. Discharge Attestations Time Spent in Discharge Care*: greater than 30 min Specific Discharge Activities: educating patient, educating and/or supporting family/caregiver, discussing with pcp/other providers, discussing with pillowcase maker/social workers/dc planners, documenting/other paperwork and evaluating patient/reviewing data Status at Discharge: Cognitive status at discharge: mildly impaired cognition , Behavioral status at discharge: cooperative , Functional status at discharge: independent ambulation , Overall status at discharge: patient is progressing back to baseline Quality Metrics Clinical Quality Measures [ No reported AMI, CVA or VTE this stay] Coding Level of Care Code 14192 Total time (in minutes) for Discharge: 60 Diagnoses Cellulitis L03.90 Hypokalemia E87.6 Leukocytosis D72.829 Leukocytosis type: unspecified UTI (urinary tract infection) N39.0
[2022-10-10 11:45] VITALS: BP 131/88; PULSE 72; RESP 18; TEMP 36.6; O2SAT 100
[2022-10-10 13:00] VITALS: PULSE 85; RESP 16; O2SAT 98
--- NOTE | 2022-10-13 11:35 | PC.SOCIAL ---
10/11/22 CM did call back and patient didn't get her Linezolid. Spoke with [facility] and it requires a PA. CM asked that info be faxed to [phone]. CM updated Dr. Sousa, he states that there isn't another oral option so patient can start when PA is approved. 10/12/22 Information was obtained for PA, CM completed using [employer]. Status pending. 10/13/22 [employer], status approved. CM called [facility] and spoke to Jere, he is able to see that it is approved and they are able to deliver today. CM called [facility] and updated [facility].
== END 2022-10-10 13:49 | disposition home or self-care (01) | DRG 603 ==
LOC: ER 08:05 → MEDSURG 14:15
PROVIDERS: Admitting Provider Internal Medicine; Emergency Provider Family Medicine; PCP Family Medicine; Visit Provider Student in an Organized Health Care Education/Training Program
DX: L03.116 Cellulitis of left lower limb (principal); N39.0 Urinary tract infection, site not specified; E87.6 Hypokalemia; Z79.51 Long term (current) use of inhaled steroids; F79 Unspecified intellectual disabilities; Z86.14 Personal history of Methicillin resistant Staphylococcus aureus infection
CPT/HCPCS: 36415; 73701; 80048; 80053; 80061; 80202; 81001; 82607; 82746; 83036; 83540; 83550; 83605; 84145; 84443; 85025; 85651; 86140; 87040; 87086; 93971; 94640; 96365; 96372; 99285; J0692; J1650; J2270; J3370; J7050; J7613; J7626; Q9967

== ENCOUNTER → 2022-10-11 09:00 | Outpatient (BNVA) | payer MEDICARE, MEDICAID, SELFPAY | PROVIDERS: PCP Family Medicine; Visit Provider Nurse Practitioner Family | DX: I96 Gangrene, not elsewhere classified (principal); L97.822 Non-pressure chronic ulcer of other part of left lower leg with fat layer exposed | CPT/HCPCS: 97597; A6210 ==

== ENCOUNTER → 2022-10-18 08:58 | Outpatient (BNVA) | payer MEDICARE, MEDICAID, SELFPAY | PROVIDERS: PCP Family Medicine; Visit Provider Nurse Practitioner Family | DX: I96 Gangrene, not elsewhere classified (principal); L97.822 Non-pressure chronic ulcer of other part of left lower leg with fat layer exposed | CPT/HCPCS: 97597 ==

== ENCOUNTER → 2022-10-25 09:17 | Outpatient (BNVA) | payer MEDICARE, MEDICAID, SELFPAY | PROVIDERS: PCP Family Medicine; Visit Provider Nurse Practitioner Family | DX: Z09 Encounter for follow-up examination after completed treatment for conditions other than malignant neoplasm (principal) | CPT/HCPCS: 99212 ==

== ENCOUNTER 2022-11-21 09:07 | Outpatient (RCR) | payer MEDICARE, MEDICAID, SELFPAY | END 2022-11-29 23:59 | disposition home or self-care (01) | LOC: SPT 09:07 | PROVIDERS: PCP Family Medicine; Visit Provider Family Medicine | DX: I87.2 Venous insufficiency (chronic) (peripheral) (principal); R60.0 Localized edema | CPT/HCPCS: 29581; 97140; 97161 ==

== ENCOUNTER 2022-11-30 06:00 | Outpatient (RCR) | payer MEDICARE, MEDICAID, SELFPAY | END 2022-12-29 23:59 | disposition home or self-care (01) | LOC: SPT 06:00 | PROVIDERS: PCP Family Medicine; Visit Provider Family Medicine | DX: I87.2 Venous insufficiency (chronic) (peripheral) (principal) | CPT/HCPCS: 29581; 97140 ==

== ENCOUNTER 2022-12-30 06:00 | Outpatient (RCR) | payer MEDICARE, MEDICAID, SELFPAY | END 2023-01-29 23:59 | disposition home or self-care (01) | LOC: SPT 06:00 | PROVIDERS: PCP Family Medicine; Visit Provider Family Medicine | DX: R60.0 Localized edema (principal); L03.90 Cellulitis, unspecified | CPT/HCPCS: 29581; 97140 ==

== ENCOUNTER 2023-09-17 15:00 | Outpatient (CLI) | payer MEDICARE, MEDICAID, SELFPAY ==
--- NOTE | 2023-09-17 15:11 | USCV_ITS ---
Chuyita Kilpatrick Age: 48 Gender: F : 1975 Exam Date: 09/17/2023 15:16 Ordering Phys: Shwetah Thomas MD Technologist: [employer] Exam Location: [facility] [place]_ Indication: PROCEDURES: Venous duplex imaging was performed in only the left lower extremity. In addition, the posterior tibial and peroneal trunk were evaluated. FINDINGS: Evidence of acute occlusive superficial thrombophlebitis in the left greater saphenous vein with abnormal flow dynamics. Thrombus extends into the adjacent CFV from the GSV. CONCLUSIONS Occlusive GSV thrombus extends into the CFV. Report called by metal base blocker. Dr. Oksana Bryson DO (Electronically Signed) Final Date: 17 September 2023 15:49 S
== END 2023-09-17 15:06 | disposition home or self-care (01) ==
LOC: RAD 15:05
PROVIDERS: PCP Family Medicine; Visit Provider Family Medicine
DX: I82.812 Embolism and thrombosis of superficial veins of left lower extremity (principal); R60.0 Localized edema
CPT/HCPCS: 93971

== ENCOUNTER 2023-09-27 10:41 | Outpatient (CLI) | payer MEDICARE, MEDICAID, SELFPAY ==
--- NOTE | 2023-09-27 10:46 | MM_ITS ---
WS: [id number] BILATERAL SCREENING DIGITAL TOMOSYNTHESIS MAMMOGRAM WITH CAD HISTORY: SCREENING COMPARISON: 09/24/2022, 09/22/2021, 05/14/2019 Bilateral CC and MLO views with tomosynthesis and synthetic mammography submitted. Computer aided det ection analyzed. Breast composition: There are scattered areas of fibroglandular density. No suspicious masses, microc alcifications or architectural distortion. Benign scattered calcifications in each breast. MM/[place] [id number] IMPRESSION: BI-RADS: 2-Benign FOLLOW UP: 1 Year Follow-up
== END 2023-09-27 10:42 | disposition home or self-care (01) ==
LOC: RAD 10:41
PROVIDERS: PCP Family Medicine; Visit Provider Family Medicine
DX: Z12.31 Encounter for screening mammogram for malignant neoplasm of breast (principal)
CPT/HCPCS: 77063; 77067

== ENCOUNTER 2024-09-28 08:08 | Outpatient (CLI) | payer MEDICARE, MEDICAID, SELFPAY ==
--- NOTE | 2024-09-28 08:16 | MM_ITS ---
WS: [id number] BILATERAL 3D TOMOSYNTHESIS DIGITAL SCREENING MAMMOGRAPHY WITH CAD CLINICAL INFORMATION: SCREEN HISTORY: Screening mammogram. No current complaints. COMPARISON: 2023 TECHNIQUE: Bilateral CC and MLO views. FINDINGS: Scattered fibroglandular densities bilaterally. No suspicious focal mass, asymmetry, calcifications, or architectural distortion. No evidence of malignancy. Incidental punctate calcifications MM/MM scr tomosynthesis [id number] IMPRESSION: DENSITY: There are scattered areas of fibroglandular density. BI-RADS: 2 - Benign. FOLLOW UP: 1 Year Follow-up Recommend return to annual screening mammography.
== END 2024-09-28 08:09 | disposition home or self-care (01) ==
PROVIDERS: PCP Nurse Practitioner Family; Visit Provider Internal Medicine
DX: Z12.31 Encounter for screening mammogram for malignant neoplasm of breast (principal); R92.323 Mammographic fibroglandular density, bilateral breasts; R92.1 Mammographic calcification found on diagnostic imaging of breast
CPT/HCPCS: 77063; 77067

== ENCOUNTER → 2024-10-15 09:03 | Outpatient (BNVA) | payer MEDICARE, MEDICAID, SELFPAY | PROVIDERS: PCP Nurse Practitioner Family; Visit Provider Nurse Practitioner Family | DX: L81.4 Other melanin hyperpigmentation (principal); D22.5 Melanocytic nevi of trunk; Z87.2 Personal history of diseases of the skin and subcutaneous tissue; B07.8 Other viral warts; R20.9 Unspecified disturbances of skin sensation; R20.8 Other disturbances of skin sensation; R23.8 Other skin changes; Z78.9 Other specified health status; L53.8 Other specified erythematous conditions; R58 Hemorrhage, not elsewhere classified; L29.89 Other pruritus; L57.0 Actinic keratosis | CPT/HCPCS: 17000; 17110; 99213 ==